=== PATIENT | female | born 1945 | race Caucasian/White ===

== ENCOUNTER → 2016-07-21 | Outpatient (CLI) | payer MEDICARE ==
--- NOTE | 2016-07-24 08:09 | MM ---
Reason for exam: screening (asymptomatic). Baseline mammogram. History: Patient is postmenopausal and is nulliparous. Family history of breast cancer in sister at age 49. Core biopsy of the left breast, 2006. Physical Findings: Nurse Summary: 3cm, 2cm, 2cm nodule in th left breast at 1 o'clock, 2 o'clock, 3 o'clock and 9 o'clock (nurse kp). MG 3D Diag Mammo W/Cad ALVERTO Bilateral CC and MLO view(s) were taken. ML view(s) were taken of the left breast. There are scattered fibroglandular densities. Finding: There is a high, spiculated 1.8 mm architectural distortion in the 10 o'clock position of the left breast. There is a 2.0 equal, ill defined architectural in the 1 o'clock position of the right breast. New finding. These results were verbally communicated with the patient and result sheet given to the patient on 07/21/16. ASSESSMENT: Incomplete: need additional imaging evaluation, BI-RAD 0 RECOMMENDATION: Ultrasound of both breasts.
--- NOTE | 2016-07-24 08:13 | USB ---
Reason for exam: additional evaluation requested from abnormal screening. History: Patient is postmenopausal and is nulliparous. Family history of breast cancer in sister at age 49. Core biopsy of the left breast, 2006. US Breast Limited BILAT Right breast ultrasound demonstrates no cystic or solid lesion seen. Left breast ultrasound includes all four quadrants, the retroareolar region and axilla. Finding demonstrate a 2.6 x 2.6cm oval, hypoechoic, vascular lesion at 2 o'clock palpable and a 1.5 x 1.4 x 1.0cm irregular, spiculated, solid, hypoechoic lesion at 10 o'clock palpable. These results were verbally communicated with the patient and result sheet given to the patient on 07/21/16. ASSESSMENT: Highly suggestive of malignancy, BI-RAD 5 RECOMMENDATION: Ultrasound core biopsy of the left breast. (2 sites, palpable and lymph node per Dr. Denny) Called Dr. Correa with mammographic findings and has scheduled an appointment for the patient for 08/17/16 at 9:[address] Denny. Biopsy scheduled for 07/31/16 at 8:00. PRELIMINARY REPORT CALLED AND FAXED TO DR. DENNY ON 07/24/16 AT 300/TP. Follow-up diagnostic mammogram of the right breast in 6 months.
== END ==
LOC: RADMAMWWP 13:23
PROVIDERS: ATTEND Internal Medicine
DX: N63 Unspecified lump in breast (principal); R92.8 Other abnormal and inconclusive findings on diagnostic imaging of breast
CPT/HCPCS: 76642; G0204; G0279

== ENCOUNTER → 2016-07-25 | Day surgery (SDC) | payer MEDICARE ==
[~2016-07-25] MED LIST: ALPRAZolam 0.25 MG TAB ONE; BACITRACIN OINT 1 EACH PACKET TOPICAL ONE; LIDOCAINE 1% INJ 10MG/ML (20 ML MDV) ONE; LIDOCAINE 1%-EPI 1:100,000 20 ML VIAL ONE; SODIUM BICARB 4% 5 ML VIAL (0.48 MEQ/ML) ONE
--- NOTE | 2016-07-25 11:41 | USB ---
EXAMINATION TYPE: US biopsy breast VAD LT, US biopsy breast add'l VAD LT Postprocedure digital left breast mammogram DATE OF EXAM: 07/25/2016 10:37 AM CLINICAL HISTORY: 70-year-old female R92.8 Abnormal mammogram. TECHNIQUE: Ultrasound guided core biopsy of the left breast, 2 sites. COMPARISON: Mammogram and ultrasound 07/21/2016 FINDINGS: The procedure of ultrasound guided core biopsy was explained to the patient. Benefits, alternatives, and risks were discussed. An informed consent was then obtained. The patient was placed in supine positioning for imaging and for the procedure. The overlying skin was prepped and draped in usual sterile fashion. SITE 1, SUSPICIOUS LEFT AXILLARY LYMPH NODE: Lidocaine buffered with bicarbonate was used as anesthetic into the skin followed by lidocaine and epinephrine into the subcutaneous tissues and into the abnormally enlarged left axillary lymph node. And subcutaneous tissue up to area of concern in the breast. Under ultrasound guidance, a 13-gauge vacuum-assisted mammotome Elite biopsy gun was used to obtain 4 core samples. Following this, a wing clip was left in lesion. SITE 2, 10:00 SUSPICIOUS LEFT BREAST MASS: Lidocaine buffered with bicarbonate was used as anesthetic into the skin and subcutaneous tissue up to area of concern in the left breast. Under ultrasound guidance, a 13-gauge vacuum- assisted mammotome Elite biopsy gun device was used to obtain 5 core samples. Following this, a coil clip was left in lesion. The patient tolerated the procedure well without any immediate complication. The patient was kept in the radiology department for short stay after the procedure and then discharged home in stable condition. Post procedure mammogram shows clips in appropriate position. IMPRESSION: Successful, uncomplicated ultrasound guided core biopsy of 2 sites in the left breast; full pathology results to follow: 1. Site 1, suspicious left axillary lymph node. 2. Site 2, suspicious 10:00 left breast mass. Pathology Results: Malignant A. BREAST, LEFT, TWO O'CLOCK, BIOPSY: DUCTAL CARCINOMA AND LYMPHOID TISSUE SUGGESTIVE OF LYMPH NODE WITH METASTATIC CARCINOMA. B. BREAST, LEFT, TEN O'CLOCK, BIOPSY: INVASIVE DUCTAL CARCINOMA. Recommendation Surgical consult of the left breast. LACHO
== END ==
LOC: RADUSWWP 07:34
PROVIDERS: ATTEND Surgery
DX: C50.912 Malignant neoplasm of unspecified site of left female breast (principal); R92.8 Other abnormal and inconclusive findings on diagnostic imaging of breast
CPT/HCPCS: 88305; 19083; 19084; G0206; A4648; J2001

== ENCOUNTER → 2016-08-09 | Outpatient (CLI) | payer MEDICARE ==
[2016-08-09 11:22] LABS: Blood Urea Nitrogen 11 mg/dL (7-17); Non-African American GFR(MDRD) >60 (>60 ml/min/1.73 sqM)
--- NOTE | 2016-08-09 14:07 | CT ---
EXAMINATION TYPE: CT ChestAbdPelvis w con DATE OF EXAM: 08/09/2016 1:05 PM INDICATION: Recent diagnosis of Breast CA COMPARISON: NONE CT DLP: 998.1 mGycm CONTRAST: Performed with Oral Contrast and with IV Contrast, patient injected with 100 mL of Omnipaque 300. TECHNIQUE: Axial images at 5 mm thick sections. Reconstructed images in the coronal plane. Delayed images through the kidneys. FINDINGS: CT CHEST: There is a 0.4 cm hypodensity within the posterior inferior right lobe thyroid within the field-of-vi ew. There is a markedly enlarged lymph node or 2 adjacent lymph nodes within the left axillary region. Th is area measures 3.4 x 5.1 cm. No enlarged mediastinal or hilar adenopathy is evident. The ascending aorta diameter at the level of the main pulmonary artery is 3.0 cm. The main pulmonary artery diameter at the bifurcation is 2.5 cm. Coronary artery calcification is present. CT ABDOMEN: Liver: Normal Spleen: Normal Pancreas: Normal Adrenal glands: The adrenal glands are normal. Gallbladder: Gallstones are present. Kidneys: No masses are evident. No hydronephrosis is present. No cysts are present. Delayed images were obtained through the kidneys, which remain unremarkable. Aorta: Vascular calcification is within the aorta. Inferior vena cava: Normal. CT PELVIS: Loops of bowel within the abdomen and pelvis are normal. There are loops of bowel which are incom pletely distended or lack oral contrast limiting their evaluation. Appendix: Normal as visualized. Urinary bladder: Normal. Genitourinary structures: Uterus and adnexal regions appear normal. Multiple phleboliths are within t he pelvis. Osseous structures: Lytic lesion versus hemangiomas within the right L1 vertebral body. IMPRESSIONS: 1. Markedly enlarged left axillary lymph node. This is a small density which could be a calcification or a biopsy clip. 2. Hemangioma versus lytic lesion within the L1 vertebral body. Nuclear medicine bone scan is incompl ete at this time.
--- NOTE | 2016-08-09 16:13 | NM ---
EXAMINATION TYPE: NM bone scan whole body DATE OF EXAM: 08/09/2016 3:44 PM COMPARISON: CT scan 08/09/2016 HISTORY: Breast cancer Delayed whole-body scanning was performed following the injection of . mCi Tc 99m MDP. Images acquir ed 3.5 hours post injection. FINDINGS: abnormal uptake involving the right shoulder, left knee and left foot likely post arthritic. Nonspecific uptake involving the right femoral neck. There is abnormal uptake to a mild degree throughout the mid, lower thoracic and throughout the lumba r spine appears to be degenerative. More intense area of abnormal uptake involving L5-S1 on the right also appears be related to large spur. There is mild intensity uptake involving L1 finding within the lumbar spine. Sclerotic lesion involvi ng the right iliac bone demonstrates no significant uptake by bone scan felt benign. IMPRESSION: 1. Abnormal uptake throughout the vertebral column appears to be degenerative. 2. Abnormality L1 and CT scan demonstrates mild to moderate uptake most likely related to hemangioma. 3. Abnormal uptake involving the shoulders, knees and feet most typical of arthritic change. 4. Pinpoint area of uptake on the oblique view of the chest within the right lateral third or fourth rib demonstrates no CT abnormality. However, this should be monitored closely as well as correlated c linically. There is no evidence to suggest previous fracture in this region.
== END | disposition home or self-care (01) ==
LOC: RADNMMAIN 10:40
PROVIDERS: ATTEND Internal Medicine Hematology & Oncology
DX: C50.812 Malignant neoplasm of overlapping sites of left female breast (principal); R59.0 Localized enlarged lymph nodes
CPT/HCPCS: 82565; 84520; 71260; 74177; 36415; 78306; A9503; Q9967

== ENCOUNTER 2016-08-17 11:35 | Day surgery (SDC) | payer MEDICARE ==
[2016-08-17 11:55] VITALS: RESP 16; TEMP 98.7
[2016-08-17] MEDS ORDERED: LIDOCAINE 1% 20 ML VIAL (10MG/ML) FOR IV START INTRADERMA ONE (12:05)
[2016-08-17] MEDS ORDERED: LACTATED RINGERS 1,000 ML IV ONE (12:05)
[2016-08-17] MEDS ORDERED: ONDANSETRON 4 MG/2 ML VIAL IVP ONE (12:10)
[2016-08-17] MEDS ORDERED: DEXAMETHASONE SOD PHOSPHATE 4 MG/ML 1 ML VIAL IV ONE (12:10)
--- NOTE | 2016-08-17 13:20 | P.HPADDEND ---
H&P Addendum H&P Addendum Date: 08/17/16 The patient and I spoke by phone yesterday afternoon. Her HER-2/roman receptor did come back positive on fish. She saw oncology yesterday afternoon and a change in plan was made to proceed with neoadjuvant therapy. For that reason her mastectomy was canceled and instead a Port-A-Cath will be placed today. The risks of bleeding, infection, pneumothorax, DVT, catheter malfunction were discussed. She understands and wishes to proceed.
[2016-08-17] MEDS ORDERED: fentaNYL (PF) 50 MCG/ML 2 ML AMP ONE (13:21)
[2016-08-17] MEDS ORDERED: SODIUM CHLORIDE 0.9% 50 ML with ceFAZolin 2,000 MG IV ONE ×2 (13:21)
[2016-08-17] MEDS ORDERED: LIDOCAINE 1% INJ 10MG/ML (20 ML MDV) ONE (13:21)
[2016-08-17] MEDS ORDERED: MIDAZOLAM 2 MG/2 ML VIAL ONE (13:21)
[2016-08-17] MEDS ORDERED: PROPOFOL 10 MG/ML 20 ML VIAL IV ONE (13:21)
[2016-08-17] MEDS ORDERED: ePHEDrine 50 MG/ML 1 ML AMP ONE (13:21)
[2016-08-17] MEDS ORDERED: LIDOCAINE 1% INJ 10MG/ML (20 ML MDV) SQ ONE ×2 (13:48)
[2016-08-17] MEDS ORDERED: HEPARIN SODIUM,PORCINE 100 UNIT/ML 5 ML VIAL IV ONE (13:49)
--- NOTE | 2016-08-17 14:22 | FL ---
EXAMINATION TYPE: FL guided central line placemt HISTORY: Fluoroscopy time Impression: 1. Fluoroscopy support provided to the referring physician of 6 seconds.
[2016-08-17] MEDS ORDERED: NALOXONE 0.4 MG/ML 1 ML VIAL IV PRN (14:45)
--- NOTE | 2016-08-17 14:47 | P.PCN ---
Date of Procedure: 08/17/16 Procedure(s) Performed: PREOPERATIVE DIAGNOSIS: Breast cancer POSTOPERATIVE DIAGNOSIS: Same PROCEDURE: Port-A-Cath placement SURGEON: Kash EBL: Minimal ANESTHESIA: Sedation COMPLICATIONS: None OPERATIVE PROCEDURE: Patient was brought and placed on the operative table in the supine position. The patient was sedated per anesthesia that time. The chest and neck were prepped and draped in usual sterile fashion. The ultrasound probe was used to identify the location of the right internal jugular vein. The skin was localized with lidocaine. The Seldinger needle was advanced into the IJ under ultrasound guidance. The wire was advanced through the needle under fluoroscopic guidance into the superior vena cava. A port pocket was created in the right infraclavicular location. The catheter was tunneled from the wire entrance site to the port pocket. The port was then connected to the catheter. The dilator introducer was threaded over the guidewire. The guidewire and dilator were then removed. The catheter was advanced through the introducer and introducer was then removed. The tip was seen to be in the right atrial junction. Port was flushed with both saline and a Hep-Lock solution. There was good flow both in and out of the port. The port was sutured in underlying tissues using 3-0 silk sutures. The subcutaneous tissues were reapproximated using 3-0 Vicryl sutures and the skin at both locations using 4-0 Monocryl sutures. Steri-Strips and sterile dressings then applied. DISPOSITION: Stable to recovery room
--- NOTE | 2016-08-17 14:55 | XR ---
EXAMINATION TYPE: XR chest 1V portable DATE OF EXAM: 08/17/2016 2:45 PM COMPARISON: NONE HISTORY: Port-A-Cath placement TECHNIQUE: Single frontal view of the chest is obtained. FINDINGS: There is no focal air space opacity, pleural effusion, or pneumothorax seen. The cardiac silhouette size is within normal limits. The osseous structures are intact. Port-A-Cath seen with t he tip overlying the SVC. No sizable pneumothorax. Curvature of the spine and degenerative changes no naeem. IMPRESSION: No acute process.
[2016-08-17 15:43] VITALS: BP 109/47; PULSE 92
== END 2016-08-17 15:40 | disposition home or self-care (01) ==
LOC: OR 11:35
PROVIDERS: ATTEND Surgery
DX: C50.919 Malignant neoplasm of unspecified site of unspecified female breast (principal); Z17.0 Estrogen receptor positive status [ER+]; I10 Essential (primary) hypertension; Z79.899 Other long term (current) drug therapy
CPT/HCPCS: 71010; 77001; 36571; C1788; J2250; J1642; J1100; J2405; J2001; J3010; J0690; J2704

== ENCOUNTER → 2016-08-23 | Outpatient (CLI) | payer MEDICARE ==
--- NOTE | 2016-08-23 11:54 | ECHOF ---
Referral Reason:C50.812 breast ca Z01.818 pre chemo MEASUREMENTS -------- HEIGHT: 165.1 cm WEIGHT: 72.6 kg BP: 141/65 RVIDd: 2.9 cm (< 3.3) IVSd: 1.0 cm (0.6 - 1.1) LVIDd: 4.0 cm (3.9 - 5.3) LVPWd: 1.1 cm (0.6 - 1.1) IVSs: 1.4 cm LVIDs: 2.8 cm LVPWs: 1.5 cm LA Diam: 3.2 cm (2.7 - 3.8) LAESV Index (A-L): 21.31 ml/m Ao Diam: 3.4 cm (2.0 - 3.7) AV Cusp: 1.9 cm (1.5 - 2.6) MV EXCURSION: 15.488 mm (> 18.000) MV EF SLOPE: 64 mm/s (70 - 150) EPSS: 0.4 cm MV E Ed: 0.64 m/s MV DecT: 266 ms MV A Ed: 0.75 m/s MV E/A Ratio: 0.86 FINDINGS -------- Sinus rhythm. This was a technically adequate study. The left ventricular size is normal. Left ventricular wall thickness is normal. Overall left ventricular systolic function is low-normal with, an EF between 50 - 55 %. The right ventricle is normal in size. Normal LA size by volume 22+/-6 ml/m2. The right atrium is normal in size. There is mild aortic valve sclerosis. The mitral valve leaflets are mildly thickened. Mild mitral annular calcification present. There is trace mitral regurgitation. The tricuspid valve appears structurally normal. The pulmonic valve is normal. The aortic root size is normal. The pericardium is normal. CONCLUSIONS -------- 1. Sinus rhythm. 2. Mild mitral annular calcification present. 3. There is trace mitral regurgitation. 4. The tricuspid valve appears structurally normal. 5. The pulmonic valve is normal. 6. The aortic root size is normal. 7. The pericardium is normal. 8. This was a technically adequate study. 9. The left ventricular size is normal. 10. Left ventricular wall thickness is normal. 11. The right ventricle is normal in size. 12. Normal LA size by volume 22+/-6 ml/m2. 13. The right atrium is normal in size. 14. There is mild aortic valve sclerosis. 15. The mitral valve leaflets are mildly thickened. HELIUM ARC WELDER: Usha Hinojosa RDCS
== END | disposition home or self-care (01) ==
LOC: RADECHMAIN 10:24
PROVIDERS: ATTEND Internal Medicine Hematology & Oncology
DX: Z01.818 Encounter for other preprocedural examination (principal); I34.0 Nonrheumatic mitral (valve) insufficiency; I35.8 Other nonrheumatic aortic valve disorders; C50.812 Malignant neoplasm of overlapping sites of left female breast
CPT/HCPCS: 93306

== ENCOUNTER → 2016-11-29 | Outpatient (CLI) | payer MEDICARE ==
--- NOTE | 2016-11-30 10:26 | ECHOF ---
Referral Reason:N MEASUREMENTS -------- HEIGHT: 165.1 cm WEIGHT: 72.1 kg BP: 144/65 RVIDd: 1.8 cm (< 3.3) IVSd: 1.1 cm (0.6 - 1.1) LVIDd: 4.5 cm (3.9 - 5.3) LVPWd: 1.2 cm (0.6 - 1.1) IVSs: 1.4 cm LVIDs: 3.5 cm LVPWs: 1.4 cm LAESV Index (A-L): 35.72 ml/m Ao Diam: 3.1 cm (2.0 - 3.7) AV Cusp: 1.7 cm (1.5 - 2.6) LA Diam: 4.1 cm (2.7 - 3.8) MV EXCURSION: 23.102 mm (> 18.000) MV EF SLOPE: 153 mm/s (70 - 150) EPSS: 0.8 cm MV E Ed: 0.87 m/s MV DecT: 287 ms MV A Ed: 0.54 m/s MV E/A Ratio: 1.61 RAP: 5.00 mmHg RVSP: 15.03 mmHg FINDINGS -------- Sinus rhythm. This was a technically adequate study. There is borderline concentric left ventricular hypertrophy. Overall left ventricular systolic function is mildly impaired with, an EF between 45 - 50 %. The right ventricle is normal in size and function. LA is moderately dilated 34-39 ml/m2 The right atrium is normal in size. Aortic valve is trileaflet and is mildly thickened. There is no evidence of aortic regurgitation. There is no evidence of aortic stenosis. The mitral valve leaflets are mildly thickened. Mild mitral annular calcification present. There is trace to mild mitral regurgitation. Trace tricuspid regurgitation present. There is no evidence of pulmonary hypertension. The right ventricular systolic pressure, as measured by Doppler, is 15.03mmHg. The pulmonic valve was not well visualized. The aortic root size is normal. Normal inferior vena cava with normal inspiratory collapse consistent with estimated right atrial pressure of 5 mmHg. The pericardium is normal. There is no pericardial effusion. CONCLUSIONS -------- 1. Sinus rhythm. 2. Trace tricuspid regurgitation present. 3. There is no evidence of pulmonary hypertension. 4. The right ventricular systolic pressure, as measured by Doppler, is 15.03mmHg. 5. The pulmonic valve was not well visualized. 6. The aortic root size is normal. 7. There is no pericardial effusion. 8. This was a technically adequate study. 9. There is borderline concentric left ventricular hypertrophy. 10. Overall left ventricular systolic function is mildly impaired with, an EF between 45 - 50 %. 11. LA is moderately dilated 34-39 ml/m2 12. Aortic valve is trileaflet and is mildly thickened. 13. The mitral valve leaflets are mildly thickened. 14. Mild mitral annular calcification present. 15. There is trace to mild mitral regurgitation. SALES REPRESENTATIVE GIRLS' APPAREL: Henry Josue RDCS
== END | disposition home or self-care (01) ==
LOC: RADECHMAIN 13:44
PROVIDERS: ATTEND Internal Medicine Hematology & Oncology
DX: Z01.810 Encounter for preprocedural cardiovascular examination (principal); I08.0 Rheumatic disorders of both mitral and aortic valves; C50.812 Malignant neoplasm of overlapping sites of left female breast
CPT/HCPCS: 93306

== ENCOUNTER → 2016-12-05 | Outpatient (CLI) | payer MEDICARE ==
--- NOTE | 2016-12-05 15:18 | NM ---
EXAMINATION TYPE: NM rest muga chemo DATE OF EXAM: 12/05/2016 COMPARISON: NONE HISTORY: Breast cancer, C50.812 Following intravenous administration of 3ml PYP 24.7 mCi Tc 99m Sodium Pertechnetate. FINDINGS: There is good myocardial wall thickening. Ejection fraction 58% IMPRESSION: Normal right and left ventricular chamber sizes. Normal right and left ventricular segmental wall mot ion.
== END | disposition home or self-care (01) ==
LOC: RADNMMAIN 12:26
PROVIDERS: ATTEND Internal Medicine Hematology & Oncology
DX: C50.919 Malignant neoplasm of unspecified site of unspecified female breast (principal)
CPT/HCPCS: 78472; A9560

== ENCOUNTER 2016-12-22 07:11 | Inpatient (IN) | payer MEDICARE ==
[2016-12-20 14:41] VITALS: BMI 26.6
[~2016-12-22 07:11] MED LIST changes: -ALPRAZolam 0.25 MG TAB ONE; -BACITRACIN OINT 1 EACH PACKET TOPICAL ONE; +DEXAMETHASONE SOD PHOSPHATE 10 MG/ML 1 ML VIAL IV ONE; +HEPARIN SODIUM,PORCINE 5,000 UNIT/ML 1 ML VIAL SQ ONE; +HYDROmorphone 1 MG/ML 1 ML SYRINGE IVP PRN; +LACTATED RINGERS 1,000 ML IV SCH; -LIDOCAINE 1% INJ 10MG/ML (20 ML MDV) ONE; -LIDOCAINE 1%-EPI 1:100,000 20 ML VIAL ONE; +MIDAZOLAM 2 MG/2 ML VIAL IV PRN; +ONDANSETRON 4 MG/2 ML VIAL IVP ONE; +Pre Op ABX Message 1 EACH MISC MISCELLANE ONE; -SODIUM BICARB 4% 5 ML VIAL (0.48 MEQ/ML) ONE
[2016-12-22] MEDS ORDERED: LIDOCAINE 1% 20 ML VIAL (10MG/ML) FOR IV START INTRADERMA ONE (11:02)
[2016-12-22] MEDS ORDERED: PROPOFOL 10 MG/ML 20 ML VIAL IV ONE (11:38)
[2016-12-22] MEDS ORDERED: HYDROmorphone (PF) 1 MG/ML ONE (11:38)
[2016-12-22] MEDS ORDERED: MIDAZOLAM 2 MG/2 ML VIAL ONE (11:38)
[2016-12-22] MEDS ORDERED: fentaNYL (PF) 50 MCG/ML 2 ML AMP ONE (11:38)
[2016-12-22] MEDS ORDERED: ceFAZolin 1,000 MG VIAL ONE (11:38)
[2016-12-22] MEDS ORDERED: SUCCINYLCHOLINE CHLORIDE 100 MG/5 ML SYR IV ONE (11:38)
[2016-12-22] MEDS ORDERED: SODIUM CHLORIDE 0.9% 50 ML with ceFAZolin 2,000 MG IV ONE ×2 (12:02)
[2016-12-22] MEDS ORDERED: LACTATED RINGERS 1,000 ML IV ONE (12:33)
[2016-12-22] MEDS ORDERED: HYDROcodone/APAP 5-325MG 1 EACH TAB PO PRN (15:11)
[2016-12-22] MEDS ORDERED: ONDANSETRON 4 MG/2 ML VIAL IVP PRN (15:11)
[2016-12-22] MEDS ORDERED: NALOXONE 0.4 MG/ML 1 ML VIAL IV PRN ×2 (15:11→15:37)
--- NOTE | 2016-12-22 15:33 | P.OP ---
Date of Procedure: 12/22/16 Preoperative Diagnosis: Postoperative Diagnosis: Procedure(s) Performed: PREOPERATIVE DIAGNOSIS: Left breast cancer POSTOPERATIVE DIAGNOSIS: Same PROCEDURE: Left breast modified radical mastectomy with right breast simple mastectomy SURGEON: Kash EBL: Minimal ANESTHESIA: General COMPLICATIONS: None OPERATIVE PROCEDURE: Patient was placed on the operating room table in the supine position. The chest wall was prepped and draped in usual sterile fashion. Using the skin marker the proposed incision sites were drawn out on the chest wall. The right side was first addressed. The superior incision was first created. The incision was elliptical in nature encompassing the nipple areolar complex. Flaps were raised superiorly until the chest wall was reached. Inferior flaps were then raised. The breast was removed from the chest wall using electrocautery. Multiple vessels were divided using either electrocautery, Harmonic scalpel, or the clip fur trimming machine operator. The area was irrigated. No bleeding was seen. A drain was placed beneath the flaps of the mastectomy incision. The subcutaneous tissues were then closed using 3-0 Vicryl sutures and the skin was closed using a running 4-0 Monocryl stitch. The left side was then addressed. An identical incision was created. Again dissection took place down to the chest wall after flaps are raised superiorly medially and inferiorly. The breast was removed from the chest wall using electrocautery. The axilla was then addressed. A formal axillary node dissection took place. The palpable nodes were once again identified. The long thoracic and thoracodorsal nerve courses were identified and preserved. Small vessels were either clipped or divided using the Harmonic scalpel. The breast was then fully removed using electrocautery after the axillary contents were swept inferiorly. The operative site was irrigated with saline and no bleeding was seen. 2 drains were placed beneath the flaps of the mastectomy incision. The subcutaneous tissues were then closed using 3-0 Vicryl sutures and the skin was closed using a running 4-0 Monocryl stitch. Prineo dressing was used along the entire length of both incisions. The drains were sutured in place using a 3-0 silk stitch. DISPOSITION: Stable to recovery room Implants: Indications for Procedure: Operative Findings: Description of Procedure:
[2016-12-22] MEDS ORDERED: HYDROmorphone PCA 5 MG/25 ML SYRINGE IV PRN (15:40)
[2016-12-22] MEDS: HEPARIN SODIUM,PORCINE 5,000 UNIT/ML 1 ML VIAL SQ SCH (16:03)
[2016-12-22] MEDS: DOCUSATE 100 MG CAP PO SCH (20:45)
[2016-12-22] MEDS: FAMOTIDINE 20 MG TAB PO SCH (20:45)
[2016-12-22] MEDS: ALPRAZolam 0.25 MG TAB PO PRN (21:02)
[2016-12-23] MEDS: HEPARIN SODIUM,PORCINE 5,000 UNIT/ML 1 ML VIAL SQ SCH ×4 (00:45→23:09)
[2016-12-23] MEDS: D5-0.45% NACL WITH KCL 20MEQ/L 1,000 ML IV SCH ×2 (01:16→11:44)
[2016-12-23 06:56] LABS: Basophils % (A) 0 %; CH 32.5; CHCM 33.9; Eosinophils % (A) 0 %; HCT 25.9 % (34.0-46.0); HDW 3.09; HGB 8.5 gm/dL (11.4-16.0); Luc # (Auto) 0.16; Luc % (Auto) 1; Lymphocytes # (A) 1.1 k/uL (1.0-4.8); Lymphocytes % (A) 8 %; MCH 31.2 pg (25.0-35.0); MCHC 32.6 g/dL (31.0-37.0); MCV 95.8 fL (80.0-100.0); Monocytes # (A) 0.5 k/uL (0-1.0); Monocytes % (A) 4 %; Neutrophils % (A) 86 %; RBC 2.71 m/uL (3.80-5.40); RDW 15.6 % (11.5-15.5); WBC 12.8 k/uL (3.8-10.6); WBC (Perox) 13.33
[2016-12-23 07:16] LABS: Calcium 8.6 mg/dL (8.4-10.2); Potassium 3.6 mmol/L (3.5-5.1)
[2016-12-23] MEDS: DOCUSATE 100 MG CAP PO SCH ×2 (08:04→20:27)
[2016-12-23] MEDS: FAMOTIDINE 20 MG TAB PO SCH ×2 (08:05→20:27)
--- NOTE | 2016-12-23 10:16 | P.PN ---
Progress Note - Text The patient is being seen for Dr. Hewitt. She had a left modified radical mastectomy and a right simple mastectomy yesterday for malignancy. She is coming along fairly well. She is awake alert. Vitals are stable. Output from the HARINDER drains are not excessive. On she is afebrile. Both surgical incisions looked great with no evidence of any infection hematoma seroma. Hemoglobin is 8.5. Impression stable postop per. Satisfactory pain control. Minimal discomfort. Anemia of chronic illness. Recommendation. We will try her on by mouth meds for pain. Otherwise continued observation. Encouraged to ambulate.
--- NOTE | 2016-12-23 11:07 | P.CONS ---
History of Present Illness - Reason for Consult Consult date: 12/23/16 Medical management estimated by Dr. goss - History of Present Illness This is a 71-year-old female with breast cancer HER-2 positive underwent chemotherapy and thereafter neoadjuvant therapy with trazatumab comes in to the hospital for elective bilateral mastectomy and a left-sided radical mastectomy. Patient was apparently noted to have a suspicious spot on her recent mammogram on the right breast hence underwent bilateral mastectomy Patient today states her her pain is well-controlled is currently on the Dilaudid DIVERSIONAL THERAPIST'S ASSISTANT Denies having any headaches blurry vision chest pain difficulty breathing nausea vomiting. Patient has not had a bowel movement yet No other complaints reported patient does get tearful intermittently however is in good spirits after the surgery. Review of Systems All systems: negative (Noted in HPI) Past Medical History Past Medical History: Cancer, GERD/Reflux, Hypertension Additional Past Medical History / Comment(s): LEFT BREAST CA, HAD 12 WEEKS OF CHEMO, LAST ONE 11/20/16, STATES HAS SOME SKIN REDDNESS R/T CHEMO TX ON MULT AREAS History of Any Multi-Drug Resistant Organisms: None Reported Past Surgical History: Breast Surgery Additional Past Surgical History / Comment(s): LEFT BREAST BX, PORT A CATH, ALVERTO CATARACT Past Anesthesia/Blood Transfusion Reactions: Motion Sickness Past Psychological History: No Psychological Hx Reported Smoking Status: Never smoker Past Alcohol Use History: None Reported Past Drug Use History: None Reported - Past Family History Father History Unknown: Yes Medications and Allergies Home Medications Medication Instructions Recorded Confirmed Type ALPRAZolam [Xanax] 0.25 mg PO Q6HR PRN 08/10/16 12/22/16 History Valsartan/Hydrochlorothiazide 1 tab PO QAM 08/10/16 12/22/16 History [Valsartan-Hctz 160-25 mg Tab] amLODIPine [Norvasc] 5 mg PO DAILY 08/10/16 12/22/16 History Eszopiclone [Lunesta] 2 mg PO HS 12/20/16 12/22/16 History Omeprazole Magnesium [Prilosec OTC] 20 mg PO DAILY 12/20/16 12/22/16 History Allergies Allergy/AdvReac Type Severity Reaction Status Date / Time adhesive tape Allergy REDDNESS Verified 12/22/16 16:51 Physical Exam Vitals: Vital Signs Temp Pulse Pulse Pulse Resp BP BP 12/23/16 07:00 97.0 F L 66 18 12/23/16 04:15 97.9 F 80 16 12/23/16 00:45 97.5 F L 84 18 12/22/16 20:45 12/22/16 20:18 97.6 F 88 16 12/22/16 19:18 85 16 12/22/16 18:18 87 16 12/22/16 17:48 86 16 12/22/16 17:18 89 16 12/22/16 17:03 88 16 12/22/16 16:48 88 16 12/22/16 16:23 97.8 F 95 16 12/22/16 15:37 89 16 120/58 12/22/16 15:22 96 16 119/58 12/22/16 15:06 85 16 111/71 12/22/16 14:50 97.4 F L 86 16 119/56 12/22/16 11:15 78 18 133/63 BP Pulse Ox 12/23/16 07:00 112/58 96 12/23/16 04:15 110/69 94 L 12/23/16 00:45 109/63 95 12/22/16 20:45 95 12/22/16 20:18 103/53 95 12/22/16 19:18 109/56 96 12/22/16 18:18 101/54 92 L 12/22/16 17:48 106/55 94 L 12/22/16 17:18 106/56 96 12/22/16 17:03 100/55 93 L 12/22/16 16:48 105/54 91 L 12/22/16 16:23 111/56 90 L 12/22/16 15:37 94 L 12/22/16 15:22 92 L 12/22/16 15:06 94 L 12/22/16 14:50 90 L 12/22/16 11:15 99 Intake and Output 12/22/16 12/23/16 12/23/16 22:59 06:59 14:59 Intake Total 200 1210 Output Total 730 660 Balance -530 550 Intake: IV 200 970 Lactated Ringers 1,000 ml 970 @ 20 mls/hr IV .Q24H [facility] Rx#:[id number] Oral 240 Output: Drainage 90 60 Left Lower Chest 20 10 Left Upper Chest 30 30 Right Chest 40 20 Urine 640 600 Other: # Voids 1 1 Physical exam Gen. appearance oriented 3 in no distress Neck is supple no JVD Lungs trace Crackles noted. A bandage over her bilateral breasts. Exam is deferred as the surgeon has already evaluated the incision. Heart S1-S2 heard regular rate and rhythm no murmurs appreciated Abdomen is soft nontender no organomegaly bowel sounds are intact Neurologically cranial nerves II-12 grossly intact no focal motor or sensory deficits noted Skin no abnormalities appreciated Results CBC & Chem 7: 12/23/16 06:25 12/23/16 06:25 Labs: Abnormal Lab Results - Last 24 Hours (Table) 12/23/16 12/23/16 Range/Units 06:25 06:25 WBC 12.8 H (3.8-10.6) k/uL RBC 2.71 L (3.80-5.40) m/uL Hgb 8.5 L (11.4-16.0) gm/dL Hct 25.9 L (34.0-46.0) % RDW 15.6 H (11.5-15.5) % Plt Count 488 H (150-450) k/uL Neutrophils # 11.0 H (1.3-7.7) k/uL Sodium 127 L (137-145) mmol/L Chloride 97 L (98-107) mmol/L Carbon Dioxide 18 L (22-30) mmol/L BUN 38 H (7-17) mg/dL Creatinine 3.65 H (0.52-1.04) mg/dL Glucose 205 H (74-99) mg/dL Assessment and Plan Plan: #1 left-sided breast cancer status post chemotherapy and surgical resection #2 acute anemia suspect underlying nutritional deficiency, however likely induced from recent chemotherapy #3 acute kidney injury this is likely prerenal with elevated BUN #4 hyponatremia this is likely prerenal again #5 non-anion gap metabolic acidosis is likely due to #3 #6 history of essential hypertension Plan DC D5 W we'll start the patient on normal saline at 100 mL per hour Urine analysis stat Repeat urine labs including sodium and osmolarity Repeat renal function in the a.m. Encourage ambulation encouraged use of I S. Hold off on blood pressure medications at this time.
[2016-12-23 11:36] LABS: Total Bilirubin 0.2 mg/dL (0.2-1.3); Total Protein 6.1 g/dL (6.3-8.2)
[2016-12-23] MEDS: SODIUM CHLORIDE 0.9% 1,000 ML IV SCH ×2 (11:48→23:13)
[2016-12-23 13:15] LABS: Appearance,Urine Cloudy (Clear); Bacteria,Urine Rare /hpf; Bilirubin,Urine Negative (Negative); Glucose,Urine (UA) Negative (Negative); Ketones,Urine Negative (Negative); Leukocyte Esterase,Urine Large (Negative); Nitrite,Urine Negative (Negative); Particle Count 1435; Protein,Urine Negative (Negative); RBC,Urine 5 /hpf (0-5); Specific Gravity,Urine 1.006 (1.001-1.035); UA Billing (MACRO vs. MICRO) MICRO; Urobilinogen,Urine <2.0 mg/dL (<2.0); WBC,Urine 63 /hpf (0-5)
[2016-12-23] MEDS: HYDROcodone/APAP 5-325MG 1 EACH TAB PO PRN ×2 (13:32→18:22)
[2016-12-23 13:56] LABS: % Iron Saturation 18.1 % (20-50)
[2016-12-23] MEDS: ALPRAZolam 0.25 MG TAB PO PRN ×2 (16:13→23:09)
[2016-12-24] MEDS: HYDROcodone/APAP 5-325MG 1 EACH TAB PO PRN ×2 (02:04→09:01)
[2016-12-24 07:09] LABS: Basophils % (A) 0 %; CH 32.2; CHCM 33.2; Eosinophils # (A) 0.3 k/uL (0-0.7); Eosinophils % (A) 2 %; HCT 27.4 % (34.0-46.0); HDW 3.08; HGB 8.8 gm/dL (11.4-16.0); Luc # (Auto) 0.19; Luc % (Auto) 2; Lymphocytes % (A) 17 %; MCH 31.3 pg (25.0-35.0); MCHC 32.2 g/dL (31.0-37.0); MCV 97.3 fL (80.0-100.0); Monocytes # (A) 0.6 k/uL (0-1.0); Monocytes % (A) 6 %; Neutrophils # (A) 8.2 k/uL (1.3-7.7); Neutrophils % (A) 73 %; RBC 2.82 m/uL (3.80-5.40); RDW 15.7 % (11.5-15.5); WBC 11.2 k/uL (3.8-10.6); WBC (Perox) 11.56
[2016-12-24 07:29] LABS: Calcium 8.2 mg/dL (8.4-10.2); Potassium 3.7 mmol/L (3.5-5.1); Total Bilirubin 0.2 mg/dL (0.2-1.3); Total Protein 6.3 g/dL (6.3-8.2)
[2016-12-24] MEDS: DOCUSATE 100 MG CAP PO SCH (09:01)
[2016-12-24] MEDS: HEPARIN SODIUM,PORCINE 5,000 UNIT/ML 1 ML VIAL SQ SCH (09:01)
[2016-12-24] MEDS: FAMOTIDINE 20 MG TAB PO SCH (09:01)
[2016-12-24 09:22] VITALS: BP 119/65; PULSE 81; RESP 19; TEMP 98.4
[2016-12-24] MEDS: SODIUM CHLORIDE 0.9% 1,000 ML IV SCH (10:01)
--- NOTE | 2016-12-24 11:30 | P.DS ---
Providers Date of admission: 12/22/16 09:11 Attending physician: Ben Hewitt Consults: 12/22/16 15:11 Consult Physician Routine Consulting Provider: Jose Louis Consult Reason/Comments: Medical management Do you want consulting provider notified?: Yes Primary care physician: Byron Correa Plan - Discharge Summary New Discharge Prescriptions: New Hydrocodone/Acetaminophen [[place] 5-325] 1 - 2 each PO Q4HR PRN #30 tab PRN Reason: pain No Action amLODIPine [Norvasc] 5 mg PO DAILY ALPRAZolam [Xanax] 0.25 mg PO Q6HR PRN PRN Reason: Anxiety Valsartan/Hydrochlorothiazide [Valsartan-Hctz 160-25 mg Tab] 1 tab PO QAM Eszopiclone [Lunesta] 2 mg PO HS Omeprazole Magnesium [Prilosec OTC] 20 mg PO DAILY Discharge Medication List ALPRAZolam [Xanax] 0.25 mg PO Q6HR PRN 08/10/16 [History] Valsartan/Hydrochlorothiazide [Valsartan-Hctz 160-25 mg Tab] 1 tab PO QAM [History] amLODIPine [Norvasc] 5 mg PO DAILY 08/10/16 [History] Eszopiclone [Lunesta] 2 mg PO HS 12/20/16 [History] Omeprazole Magnesium [Prilosec OTC] 20 mg PO DAILY 12/20/16 [History] Hydrocodone/Acetaminophen [[place] 5-325] 1 - 2 each PO Q4HR PRN #30 tab 12/22/16 [Rx] Follow up Appointment(s)/Referral(s): Ben Hewitt MD [Medical Doctor] - 1 Week Activity/Diet/Wound Care/Special Instructions: [phone] Discharge Disposition: HOME SELF-CARE
[2016-12-24] MEDS ORDERED: SODIUM BICARBONATE TAB 650 MG TAB PO SCH (12:15)
[2016-12-24] MEDS: ALPRAZolam 0.25 MG TAB PO PRN (13:01)
--- NOTE | 2016-12-24 19:40 | P.PN ---
Subjective This is a 71-year-old female with breast cancer HER-2 positive underwent chemotherapy and thereafter neoadjuvant therapy with trazatumab comes in to the hospital for elective bilateral mastectomy and a left-sided radical mastectomy. 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 Patient has not had a bowel movement yet No other complaints reported patient does get tearful intermittently however is in good spirits after the surgery. 11/23/16 improved tearful urine output reported Physical exam Gen. appearance oriented 3 in no distress Neck is supple no JVD Lungs trace Crackles noted. A bandage over her bilateral breasts. Exam is deferred as the surgeon has already evaluated the incision. Heart S1-S2 heard regular rate and rhythm no murmurs appreciated Abdomen is soft nontender no organomegaly bowel sounds are intact Neurologically cranial nerves II-12 grossly intact no focal motor or sensory deficits noted Skin no abnormalities appreciated Objective - Vital Signs Vital signs: Vital Signs Temp 98.4 F 12/24/16 09:21 Pulse 81 12/24/16 09:21 Resp 19 12/24/16 09:21 BP 119/65 12/24/16 09:21 Pulse Ox 96 12/24/16 09:21 Intake & Output 12/24/16 12/24/16 12/25/16 06:59 18:59 06:59 Intake Total 480 Output Total 125 Balance 355 Intake: Oral 480 Output: Drainage 125 Left Lower Chest 45 Left Upper Chest 50 Right Chest 30 Other: # Voids 1 - Labs CBC & Chem 7: 12/24/16 06:58 12/24/16 06:58 Labs: Abnormal Lab Results - Last 24 Hours (Table) 12/24/16 12/24/16 Range/Units 06:58 06:58 WBC 11.2 H (3.8-10.6) k/uL RBC 2.82 L (3.80-5.40) m/uL Hgb 8.8 L (11.4-16.0) gm/dL Hct 27.4 L (34.0-46.0) % RDW 15.7 H (11.5-15.5) % Plt Count 486 H (150-450) k/uL Neutrophils # 8.2 H (1.3-7.7) k/uL Sodium 132 L (137-145) mmol/L Carbon Dioxide 15 L (22-30) mmol/L BUN 32 H (7-17) mg/dL Creatinine 2.76 H (0.52-1.04) mg/dL Glucose 109 H (74-99) mg/dL Calcium 8.2 L (8.4-10.2) mg/dL Albumin 2.9 L (3.5-5.0) g/dL Assessment and Plan Plan: #1 left-sided breast cancer status post chemotherapy and surgical resection #2 acute anemia suspect underlying nutritional deficiency, however likely induced from recent chemotherapy #3 acute kidney injury this is likely prerenal with elevated BUN #4 hyponatremia this is likely prerenal again #5 non-anion gap metabolic acidosis is likely due to #3 #6 history of essential hypertension Plan serum NA is improved hold HTN meds recommend follow up with Dr Correa for CMP renal function peaked at 3.3, improved with ivf bp stable at dc encouraged oral intake likely etiology is loose stools causing dehydration and use of anti HTN meds
== END 2016-12-24 13:23 | disposition home or self-care (01) | DRG 580 ==
LOC: 2ORWHC 09:11 → 6PED 14:46
PROVIDERS: ADMIT Surgery; ATTEND Surgery
PROC: 0HTV0ZZ Resection of Bilateral Breast, Open Approach (ICD-10-PCS; principal; 2016-12-22 11:00)
PROC: 07B60ZZ Excision of Left Axillary Lymphatic, Open Approach (ICD-10-PCS; principal; 2016-12-22 11:00)
DX: C50.912 Malignant neoplasm of unspecified site of left female breast (principal); E87.1 Hypo-osmolality and hyponatremia; N17.9 Acute kidney failure, unspecified; D64.81 Anemia due to antineoplastic chemotherapy; D63.8 Anemia in other chronic diseases classified elsewhere; I10 Essential (primary) hypertension; K21.9 Gastro-esophageal reflux disease without esophagitis; Z17.0 Estrogen receptor positive status [ER+]; Z79.899 Other long term (current) drug therapy; T45.1X5A Adverse effect of antineoplastic and immunosuppressive drugs, initial encounter
CPT/HCPCS: 80053; 81001; 82728; 83540; 83550; 83935; 84300; 85025

== ENCOUNTER 2017-01-05 09:15 | Inpatient (IN) | payer MEDICARE ==
[2017-01-05] MEDS ORDERED: ONDANSETRON 4 MG/2 ML VIAL IVP STA (09:31)
[2017-01-05] MEDS ORDERED: SODIUM CHLORIDE 0.9% 1,000 ML IV STA ×2 (09:31)
--- NOTE | 2017-01-05 09:44 | ED ---
General Adult HPI - General Chief complaint: Nausea/Vomiting/Diarrhea Stated complaint: DIARRHEA, VOMTING Time Seen by Provider: 01/05/17 09:25 Source: patient, RN notes reviewed Mode of arrival: wheelchair Limitations: no limitations - History of Present Illness Initial comments: Patient 71-year-old female significant past medical history for bilateral mastectomy 2 weeks, who presents emergency room today with chief complaint of symptoms of nausea vomiting diarrhea over the last 2-3 days. Patient does admit that she saw her family doctor yesterday was given a shot of nausea medication here states still feeling nauseated having a few episodes of vomiting. States having some diarrhea off and on over the last 2-3 days. States she was advised by the family doctor come here to the emergency room for IV fluids and hydration. Patient denies any other complaints or associated symptoms. Patient denies any recent fever, chills, shortness of breath, chest pain, back pain, abdominal pain, numbness or tingling, dysuria or hematuria, constipation, headaches or visual changes, or any other complaints. - Related Data Home Medications Medication Instructions Recorded Confirmed Furosemide [Lasix] 20 mg PO DAILY 01/05/17 01/05/17 Ondansetron Odt [Zofran ODT] 4 - 8 mg PO TID PRN 01/05/17 01/05/17 Allergies Allergy/AdvReac Type Severity Reaction Status Date / Time adhesive tape Allergy PAPER TAPE Verified 01/05/17 10:34 causes rash & scabs Review of Systems ROS Statement: Those systems with pertinent positive or pertinent negative responses have been documented in the HPI. ROS Other: All systems not noted in ROS Statement are negative. Past Medical History Past Medical History: Cancer, GERD/Reflux, Hypertension Additional Past Medical History / Comment(s): LEFT BREAST CA, HAD 12 WEEKS OF CHEMO, LAST ONE 11/20/16, STATES HAS SOME SKIN REDDNESS R/T CHEMO TX ON MULT AREAS History of Any Multi-Drug Resistant Organisms: None Reported Past Surgical History: Breast Surgery Additional Past Surgical History / Comment(s): LEFT BREAST BX, PORT A CATH, ALVERTO CATARACT Past Anesthesia/Blood Transfusion Reactions: Motion Sickness Past Psychological History: No Psychological Hx Reported Smoking Status: Never smoker Past Alcohol Use History: None Reported Past Drug Use History: None Reported - Past Family History Father History Unknown: Yes General Exam - General Exam Comments Initial Comments: General: The patient is awake and alert, in no distress, and does not appear acutely ill. Eye: Pupils are equal, round and reactive to light, extra-ocular movements are intact. No nystagmus. There is normal conjunctiva bilaterally. No signs of icterus. Ears, nose, mouth and throat: There are moist mucous membranes and no oral lesions. Neck: The neck is supple, there is no tenderness or JVD. Cardiovascular: There is a regular rate and rhythm. No murmur, rub or gallop is appreciated. Respiratory: Lungs are clear to auscultation, respirations are non-labored, breath sounds are equal. No wheezes, stridor, rales, or rhonchi. Gastrointestinal: Soft, non-distended, non-tender abdomen without masses or organomegaly noted. There is no rebound or guarding present. No CVA tenderness. Bowel sounds are unremarkable. Musculoskeletal: Normal ROM, no tenderness. Strength 5/5. Sensation intact. Pulses equal bilaterally 2+. Neurological: A&O x 3. CN II-XII intact, There are no obvious motor or sensory deficits. Coordination appears grossly intact. Speech is normal. Skin: Skin is warm and dry and no rashes or lesions are noted. Psychiatric: Cooperative, appropriate mood & affect, normal judgment. Limitations: no limitations Course Vital Signs 01/05/17 09:16 Temperature 97.1 F L Pulse Rate 85 Respiratory 18 Rate Blood Pressure 134/74 O2 Sat by Pulse 99 Oximetry Medical Decision Making - Medical Decision Making Patient reexamined at this time shows no signs of distress. Resting comfortably in the stretcher. Patient's labs been reviewed does show hemoglobin 8.5. Does show potassium 2.8. Sodium 123. Patient. Creatinine mildly elevated from previous labs. Patient given potassium here in emergency room. Will also be given a liter bolus. Patient will be continued on saline at this time for acute renal failure. Patient will be admitted. - Lab Data Result diagrams: 01/05/17 10:03 01/05/17 10:03 Lab Results 01/05/17 01/05/17 01/05/17 Range/Units 10:03 10:03 10:03 WBC 11.8 H (3.8-10.6) k/uL RBC 2.73 L (3.80-5.40) m/uL Hgb 8.5 L (11.4-16.0) gm/dL Hct 24.4 L (34.0-46.0) % MCV 89.3 D (80.0-100.0) fL MCH 31.1 (25.0-35.0) pg MCHC 34.9 (31.0-37.0) g/dL RDW 15.9 H (11.5-15.5) % Plt Count 342 (150-450) k/uL Neutrophils % 87 % Lymphocytes % 8 % Monocytes % 4 % Eosinophils % 0 % Basophils % 0 % Neutrophils # 10.3 H (1.3-7.7) k/uL Lymphocytes # 0.9 L (1.0-4.8) k/uL Monocytes # 0.4 (0-1.0) k/uL Eosinophils # 0.0 (0-0.7) k/uL Basophils # 0.0 (0-0.2) k/uL Sodium 123 L (137-145) mmol/L Potassium 2.8 L* (3.5-5.1) mmol/L Chloride 94 L (98-107) mmol/L Carbon Dioxide 16 L (22-30) mmol/L Anion Gap 13 mmol/L BUN 34 H (7-17) mg/dL Creatinine 4.38 H (0.52-1.04) mg/dL Est GFR (MDRD) Af Amer 12 (>60 ml/min/1.73 sqM) Est GFR (MDRD) Non-Af 10 (>60 ml/min/1.73 sqM) Glucose 123 H (74-99) mg/dL Calcium 8.8 (8.4-10.2) mg/dL Total Bilirubin 0.7 (0.2-1.3) mg/dL AST 20 (14-36) U/L ALT 31 (9-52) U/L Alkaline Phosphatase 73 (38-126) U/L Total Protein 6.5 (6.3-8.2) g/dL Albumin 3.0 L (3.5-5.0) g/dL Lipase 151 (23-300) U/L Urine Color Light Yellow Urine Appearance Cloudy H (Clear) Urine pH 6.5 (5.0-8.0) Ur Specific Barnard 1.004 (1.001-1.035) Urine Protein Trace H (Negative) Urine Glucose (UA) Negative (Negative) Urine Ketones Negative (Negative) Urine Blood Trace H (Negative) Urine Nitrite Negative (Negative) Urine Bilirubin Negative (Negative) Urine Urobilinogen <2.0 (<2.0) mg/dL Ur Leukocyte Esterase Large H (Negative) Urine RBC 1 (0-5) /hpf Urine WBC 125 H (0-5) /hpf Urine WBC Clumps Few H (None) /hpf Urine Mucus Rare H (None) /hpf Disposition Clinical Impression: Acute renal failure, Hypokalemia, Anemia, Hyponatremia, UTI (urinary tract infection) Disposition: ADMITTED IP TO THIS HOSP Condition: Stable Referrals: Byron Correa MD [Primary Care Provider] - 1-2 days Time of Disposition: 11:19
[2017-01-05] MEDS ORDERED: ALPRAZolam 0.5 MG TAB PO STA (10:29)
[2017-01-05 10:40] LABS: Appearance,Urine Cloudy (Clear); Bilirubin,Urine Negative (Negative); Glucose,Urine (UA) Negative (Negative); Ketones,Urine Negative (Negative); Leukocyte Esterase,Urine Large (Negative); Mucus,Urine Rare /hpf; Nitrite,Urine Negative (Negative); PH, Urine 6.5 (5.0-8.0); Particle Count 4708; Protein,Urine Trace (Negative); RBC,Urine 1 /hpf (0-5); Specific Gravity,Urine 1.004 (1.001-1.035); UA Billing (MACRO vs. MICRO) MICRO; Urobilinogen,Urine <2.0 mg/dL (<2.0); WBC,Urine 125 /hpf (0-5)
[2017-01-05 10:44] LABS: Calcium 8.8 mg/dL (8.4-10.2); Total Bilirubin 0.7 mg/dL (0.2-1.3); Total Protein 6.5 g/dL (6.3-8.2)
[2017-01-05 10:45] LABS: Basophils % (A) 0 %; CH 32.8; CHCM 36.8; Eosinophils % (A) 0 %; HCT 24.4 % (34.0-46.0); HDW 2.87; HGB 8.5 gm/dL (11.4-16.0); Luc # (Auto) 0.14; Luc % (Auto) 1; Lymphocytes # (A) 0.9 k/uL (1.0-4.8); Lymphocytes % (A) 8 %; MCH 31.1 pg (25.0-35.0); MCHC 34.9 g/dL (31.0-37.0); Mean Platelet Volume 7.6; Monocytes # (A) 0.4 k/uL (0-1.0); Monocytes % (A) 4 %; Neutrophils # (A) 10.3 k/uL (1.3-7.7); Neutrophils % (A) 87 %; RBC 2.73 m/uL (3.80-5.40); RDW 15.9 % (11.5-15.5); WBC 11.8 k/uL (3.8-10.6); WBC (Perox) 12.24
[2017-01-05 10:46] LABS: MCV 89.3 fL (80.0-100.0)
[2017-01-05 10:48] LABS: Potassium 2.8 mmol/L (3.5-5.1)
[2017-01-05] MEDS ORDERED: POTASSIUM CHLORIDE ER 20 MEQ TAB.ER PO STA (10:49)
[2017-01-05] MEDS ORDERED: HYDROcodone/APAP 5-325MG 1 EACH TAB PO PRN (11:19)
[2017-01-05] MEDS ORDERED: NALOXONE 0.4 MG/ML 1 ML VIAL IV PRN (11:19)
[2017-01-05] MEDS ORDERED: ACETAMINOPHEN TAB 325 MG TAB PO PRN (11:19)
[2017-01-05 14:06] VITALS: BMI 26.9
[2017-01-05] MEDS: ONDANSETRON 4 MG/2 ML VIAL IVP PRN (17:43)
[2017-01-05] MEDS ORDERED: Potassium Replacement Protocol 1 EACH MISC MISCELLANE PRN (18:05)
[2017-01-05] MEDS: POTASSIUM CHLORIDE ER 20 MEQ TAB.ER PO SCH ×2 (19:39→19:58)
[2017-01-05] MEDS: ALPRAZolam 0.25 MG TAB PO PRN (19:58)
[2017-01-06] MEDS: POTASSIUM CHLORIDE ER 20 MEQ TAB.ER PO SCH ×2 (01:18→03:07)
[2017-01-06 06:55] LABS: Basophils % (A) 0 %; CH 30.8; CHCM 33.2; Eosinophils # (A) 0.1 k/uL (0-0.7); Eosinophils % (A) 2 %; HCT 20.6 % (34.0-46.0); HDW 2.94; Luc # (Auto) 0.24; Luc % (Auto) 3; Lymphocytes # (A) 1.3 k/uL (1.0-4.8); Lymphocytes % (A) 15 %; MCH 30.7 pg (25.0-35.0); MCV 92.9 fL (80.0-100.0); Mean Platelet Volume 7.1; Monocytes # (A) 0.4 k/uL (0-1.0); Monocytes % (A) 5 %; Neutrophils # (A) 6.8 k/uL (1.3-7.7); Neutrophils % (A) 76 %; RBC 2.22 m/uL (3.80-5.40); RDW 15.3 % (11.5-15.5); WBC (Perox) 9.31
[2017-01-06 07:09] LABS: Calcium 7.8 mg/dL (8.4-10.2); Magnesium 1.4 mg/dL (1.6-2.3); Potassium 3.9 mmol/L (3.5-5.1); Total Bilirubin 0.3 mg/dL (0.2-1.3); Total Protein 5.5 g/dL (6.3-8.2)
[2017-01-06 07:15] LABS: HGB 6.8 gm/dL (11.4-16.0)
[2017-01-06 08:30] LABS: CHCM 34.3; HCT 20.7 % (34.0-46.0); HDW 2.87; MCH 31.6 pg (25.0-35.0); MCHC 33.7 g/dL (31.0-37.0); MCV 93.5 fL (80.0-100.0); Mean Platelet Volume 7.4; RBC 2.21 m/uL (3.80-5.40); RDW 15.7 % (11.5-15.5)
[2017-01-06] MEDS ORDERED: ENOXAPARIN 40 MG/0.4 ML SYRINGE SQ SCH (09:00)
[2017-01-06] MEDS ORDERED: POTASSIUM CHLORIDE ER 20 MEQ TAB.ER PO SCH (09:00)
[2017-01-06] MEDS ORDERED: SULFAMETHOX-TMP 800-160MG 1 EACH TAB PO SCH (10:00)
--- NOTE | 2017-01-06 15:27 | P.HPIM ---
History of Present Illness H&P Date: 01/06/17 Chief Complaint: Nausea vomiting diarrhea History of presenting complaint: This is a very pleasant 71-year-old patient of Dr. Alcantara. history of GERD, hypertension, and breast cancer. Patient had breast cancer in the left breast initially giving chemotherapy. Finished in 11/20/2016. Also bilateral mastectomy. The patient 2 days ago started having nausea vomiting diarrhea no fever and no abdominal pain.*Slowing down a bit yesterday. Patient has a friend Lelo she lives with, was not sick. Does not remember eating anything out of the norm. Last and vomiting was yesterday morning. Patient was started by her family doctor on Lexapro the same time and this was stopped as this was a question if this may be causing her symptoms GEN.: Tired EYES: None HEENT: None NECK: None RESPIRATORY: None CARDIOVASCULAR: None GASTROINTESTINAL: As above GENITOURINARY: None MUSCULOSKELETAL: None LYMPHATICS: None HEMATOLOGICAL: None PSYCHIATRY: Some anxiety depression NEUROLOGICAL: None Past medical history: GERD, hypertension, breast cancer, anxiety depression Past surgical history: Left modified radical mastectomy, right simple mastectomy, Port-A-Cath, bilateral cataract Home medications: Reviewed in electronic records ALLERGIES: Adhesive tape VITAL SIGNS: 98.5, 84, 16, 155/67, 95% room air GENERAL: Average built, sitting up, tired appearing. EYES: Pupils equal. Conjunctiva normal. HEENT: Loss of scalp hair, External appearance of nose and ears normal, oral cavity grossly normal. NECK: JVD not raised; masses not palpable. HEART: First and second heart sounds are normal; no edema. LUNGS: Respiratory rate normal; clear to auscultation. ABDOMEN: Soft, nontender, liver spleen not palpable, no masses palpable. LYMPHATICS: No lymph nodes palpable in the axilla and neck. PSYCH: Alert and oriented x3; mood and affect anxietyl. NEUROLOGICAL: Cranial nerves grossly intact; no facial asymmetry, power and sensation grossly intact. Investigations: White count 9.8, hemoglobin 8.5, potassium 2.8, sodium 123, BUN 34, creatinine 4.38, UA positive BUN is 32 and creatinine 2.76 on 12/24/2016 Assessment: -Acute renal failure prerenal from nausea vomiting diarrhea -Chronic kidney disease stage IV possibly from nephrosclerosis, will need further workup -GERD -Essential hypertension -Breast cancer with bilateral mastectomy -Alopecia from chemotherapy -Anxiety depression not otherwise specified -Anemia from chemotherapy, some drop in hemoglobin likely from dilutional effect -Hyponatremia likely hypoosmolar from decreased salt intake and excessive water intake. Plan: Patient be aggressively hydrated. We'll do a renal ultrasound. We'll get a nephrology opinion. We'll start the patient back on Lexapro. Acute the patient will light diet. Care was discussed with the patient and her friend Lelo talley the bedside. Past Medical History Past Medical History: Cancer, GERD/Reflux, Hypertension Additional Past Medical History / Comment(s): LEFT BREAST CA, HAD 12 WEEKS OF CHEMO-, LAST ONE 11/20/16-THEN HAD BILATERAL MASTECTOMIES, PT HAS HX OF HTN BUT IS CURRENTLY RUNNING NORMAL PRESSURES AND HAS BEEN TAKEN OF ANTIHYPERTENSIVE RX AT THIS TIME. History of Any Multi-Drug Resistant Organisms: None Reported Past Surgical History: Breast Surgery Additional Past Surgical History / Comment(s): LEFT BREAST BX, L MODIFIED RADICAL MASTECTOMY, R SIMPLE MASTECTOMY, PORT A CATH, ALVERTO CATARACT Past Anesthesia/Blood Transfusion Reactions: No Reported Reaction, Motion Sickness Smoking Status: Never smoker - Past Family History Father History Unknown: Yes Family Medical History: Myocardial Infarction (NM) Additional Family Medical History / Comment(s): FATHER HAD A NM AT THE AGE OF 59YRS. HE AT THE AGE OF 79YRS. Mother Family Medical History: No Reported History Additional Family Medical History / Comment(s): MOTHER LIVED TO BE 92 YRS OLD. Medications and Allergies Home Medications Medication Instructions Recorded Confirmed Type Furosemide [Lasix] 20 mg PO DAILY 01/05/17 01/05/17 History Ondansetron Odt [Zofran ODT] 4 - 8 mg PO TID PRN 01/05/17 01/05/17 History Allergies Allergy/AdvReac Type Severity Reaction Status Date / Time adhesive tape Allergy PAPER TAPE Verified 01/05/17 10:34 causes rash & scabs Results CBC & Chem 7: 01/06/17 08:12 01/06/17 06:00
[2017-01-06] MEDS: LACTATED RINGERS 1,000 ML IV SCH (16:34)
[2017-01-06] MEDS: ESCITALOPRAM 10 MG TAB PO SCH (16:37)
--- NOTE | 2017-01-06 16:42 | US ---
EXAMINATION TYPE: US kidneys/renal and bladder DATE OF EXAM: 01/06/2017 COMPARISON: CT chest abdomen and pelvis August 09, 2016 CLINICAL HISTORY: Renal failure. Renal failure EXAM MEASUREMENTS: Right Kidney: 11.2 x 5.7 x 6.0 cm Left Kidney: 11.4 x 5.8 x 5.0 cm Right Kidney: no hydro or masses seen Left Kidney: no hydro or masses seen Bladder: wnl Bilateral Jets seen: no There is no evidence for hydronephrosis at this point in time. No nephrolithiasis is seen. No mohini s are identified. The urinary bladder is anechoic. Bilateral ureteral jets are not seen. IMPRESSION: No hydronephrosis is evident bilaterally.
[2017-01-06] MEDS: ALPRAZolam 0.25 MG TAB PO PRN (20:56)
[2017-01-07] MEDS: ONDANSETRON 4 MG/2 ML VIAL IVP PRN (00:32)
[2017-01-07] MEDS: ALPRAZolam 0.25 MG TAB PO PRN ×3 (02:12→20:52)
[2017-01-07] MEDS: LACTATED RINGERS 1,000 ML IV SCH ×2 (04:39→17:32)
[2017-01-07 06:29] LABS: CH 30.4; CHCM 32.2; HCT 20.9 % (34.0-46.0); HDW 2.81; MCHC 32.7 g/dL (31.0-37.0); MCV 94.8 fL (80.0-100.0); Mean Platelet Volume 6.9; RDW 15.5 % (11.5-15.5); WBC 11.8 k/uL (3.8-10.6)
[2017-01-07 06:32] LABS: HGB 6.8 gm/dL (11.4-16.0)
[2017-01-07 06:51] LABS: Calcium 8.4 mg/dL (8.4-10.2); Potassium 4.2 mmol/L (3.5-5.1)
[2017-01-07] MEDS: ENOXAPARIN 30 MG/0.3 ML SYRINGE SQ SCH (08:47)
[2017-01-07] MEDS: ESCITALOPRAM 10 MG TAB PO SCH (08:47)
--- NOTE | 2017-01-07 10:31 | P.NPCON ---
History of Present Illness - Reason for Consult Consult date: 01/07/17 - Chief Complaint HENRY, - History of Present Illness This is a 71-year-old female seen in consultation because of acute kidney injury hypokalemia and hyponatremia. Past history is complicated with breast cancer diagnosed recently in July 2016. She had bilateral disease at the time the left breast was the more significant lesion. She underwent chemotherapy and then completed her last chemotherapy on 11/20/2016. On 12/22/2016 2 weeks ago approximately she underwent bilateral mastectomy and was discharged on 12/24/2016 At the time of that admission her creatinine was 3.65 on 12/23/2016 and went down to 2.76 the next day. She came in on 01/05/2017 2 days ago with a creatinine up at 4.38. She started her nausea vomiting or 2 or 3 days with some loose stools. No fever chills no cough dizziness shortness of breath no syncope seizures. Urine output was maintained. No history of GI bleeding, hematuria dysuria frequency or any bladder problems. In the interim she might have been started on Lasix for about 2 or 3 days maximum. Denies taking any nonsteroidals or antibiotics recently. Supposedly recently her blood pressure medication been taken off because of low blood pressure but the details are not available Past Medical History Past Medical History: Cancer, GERD/Reflux, Hypertension Additional Past Medical History / Comment(s): LEFT BREAST CA, HAD 12 WEEKS OF CHEMO-, LAST ONE 11/20/16-THEN HAD BILATERAL MASTECTOMIES, PT HAS HX OF HTN BUT IS CURRENTLY RUNNING NORMAL PRESSURES AND HAS BEEN TAKEN OF ANTIHYPERTENSIVE RX AT THIS TIME. History of Any Multi-Drug Resistant Organisms: None Reported Past Surgical History: Breast Surgery Additional Past Surgical History / Comment(s): LEFT BREAST BX, L MODIFIED RADICAL MASTECTOMY, R SIMPLE MASTECTOMY, PORT A CATH, ALVERTO CATARACT Past Anesthesia/Blood Transfusion Reactions: No Reported Reaction, Motion Sickness Smoking Status: Never smoker - Past Family History Father History Unknown: Yes Family Medical History: Myocardial Infarction (PR) Additional Family Medical History / Comment(s): FATHER HAD A PR AT THE AGE OF 59YRS. HE AT THE AGE OF 79YRS. Mother Family Medical History: No Reported History Additional Family Medical History / Comment(s): MOTHER LIVED TO BE 92 YRS OLD. Medications and Allergies Home Medications Medication Instructions Recorded Confirmed Type Furosemide [Lasix] 20 mg PO DAILY 01/05/17 01/05/17 History Ondansetron Odt [Zofran ODT] 4 - 8 mg PO TID PRN 01/05/17 01/05/17 History Allergies Allergy/AdvReac Type Severity Reaction Status Date / Time adhesive tape Allergy PAPER TAPE Verified 01/05/17 10:34 causes rash & scabs Physical Exam Vitals: Vital Signs Temp Pulse Resp BP Pulse Ox 01/07/17 07:00 98.3 F 80 20 121/58 97 01/07/17 00:00 18 01/06/17 23:00 99.1 F 94 18 134/64 97 01/06/17 15:00 97.5 F L 84 18 137/63 98 Intake and Output 01/06/17 01/07/17 01/07/17 22:59 06:59 14:59 Other: Voiding Method Toilet # Voids 2 2 Weight 73.5 kg 73.5 kg Patient Weight 01/08/17 06:59 Weight 73.5 kg On examination she is somewhat pale and otherwise awake alert oriented HEENT exam no JVP lymphadenopathy thyromegaly no carotid bruit neck is supple no facial asymmetry Lungs are clear to auscultation percussion good air entry bilaterally. There are occasional basal coarse crackles that cleared with cough. Heart sounds are unremarkable for any murmur rub gallop Abdomen is soft nontender no organomegaly status masses Extremity exam was no edema Neurologically awake alert oriented Extremities are warm to touch. There is no rash petechiae. Results - Lab Results Most recent lab results Calcium 8.4 mg/dL (8.4-10.2) 01/07/17 06:20 Magnesium 1.4 mg/dL (1.6-2.3) L 01/06/17 06:00 01/07/17 06:20 01/07/17 06:20 Assessment and Plan Plan: Impression 1. Acute kidney injury secondary to likely volume depletion from nausea vomiting diarrhea and diuretics. An element of low blood pressure in my have added to the acute kidney injury. Baseline creatinine 0.74 on 08/09/2016 has gone up to 3.651 12/13/2016 when she was admitted for bilateral mastectomy, transiently creatinine improved to 2.76 on 12/24/2016 at the time of her discharge and then came up to peak at 4.38 as of 01/05/2017 this admission. Urinalysis benign, creatinine is improved with hydration to 3.24, calcium is normal at 7.8 with albumin of 2.5. Uric acid is not available. Ultrasound shows normal kidney size that 11.2 and 11.4 cm. 5. Anemia of chronic illness. Recommendation. 1. Continue IV fluids 2. Hypokalemia secondary to nausea vomiting diarrhea Lasix. Potassium is 3.2 improved to 4.2 this morning. 3. Hyponatremia secondary to acute kidney injury sodium improved from 132-139. 4. Mild degree of non-gap acidosis with bicarb 17 and anion gap of 8 secondary to diarrhea and acute kidney injury. Recommendation. 1. Continue IV fluids currently she is on lactated Ringer's at 125 mL an hour. 2. Avoid any nephrotoxic medication for now. 3. Will hold off any antihypertensive medication for now. 4. Check serum uric acid. 5. Add sodium bicarb by mouth 650 mg, 4 times a day Thank you for this consultation, will follow closely with you
[2017-01-07] MEDS: SODIUM BICARBONATE TAB 650 MG TAB PO SCH ×3 (17:36→20:52)
--- NOTE | 2017-01-07 19:24 | P.PN ---
<oJse Louis - Last Filed: 01/07/17 20:08> Progress Note - Text Attending note. Date of service-01/07/2013 This patient was seen and examined by me . Discussed the patient with my nurse practitioner Ms. Ovalle. Bouts of diarrhea present. Lexapro stop. Patient feels rather anxious and depressed. On examination: Lungs-clear, cardio vascular first seconds are normal. Abdomen soft nontender Investigations: Hemoglobin 6.8, white count 11.8, BUN 26, creatinine 3.24 Assessment and plan: Acute diarrhea could be viral will check for one parasites Hyponatremia improved. Symptomatic anemia patient feeling weak and tired, the anemia could be from chronic kidney disease, could be from chemotherapy cannot rule out a GI cause. Anxiety depression uncontrolled. We'll send a stool for one parasites. Consider GI the view to possible endoscopy. Consult psychiatry. Care was discussed with the patient and members at the bedside. We'll transfuse 1 unit of blood blood. We will continue to hydrate the patient. Repeat labs in the morning. <Makenzie Ovalle - Last Filed: 01/07/17 21:08> Progress Note - Text DATE OF SERVICE: 01/07/2017 PRESENTING COMPLAINT: Nausea vomiting diarrhea HISTORY OF PRESENT ILLNESS: 71-year-old female status post bilateral mastectomy began having nausea vomiting and diarrhea for the previous 2 days. Recently started on Lexapro and this was stopped as it was felt this may be the offending agent. Diagnostics revealed acute renal failure. INTERVAL HISTORY: 01/07/2017: Patient sitting in a chair at the bedside very anxious appearing. States she did not sleep well overnight and had many episodes of nausea as well as diarrhea. States Lexapro had been restarted now has been stopped. Hemoglobin low discussed with patient and will decide if transfusion is necessary. Patient had several other concerns which were discussed particularly about anxiety and depression, ways to combat it.Renal function remains elevated, nephrology on consult. Able to tolerate light foods but not very much barely 20% , continues to have feelings of nausea, has the diarrhea so is having multiple bowel movements. Ambulatory in the room. REVIEW OF SYSTEMS: Done for constitutional ,cardiovascular, GI, pulmonary with relevant findings as above. CURRENT MEDICATIONS Coy, Xanax, ceftriaxone, Lovenox, Zofran. PHYSICAL EXAM VITAL SIGNS: Temperature 98.5, pulse 77, respiratory rate 18, blood pressure 128/79, oxygen saturation 97% on room air. GENERAL APPEARANCE: Lying in bed, not in distress but anxious. EYES: Pupils equal. Conjunctiva normal. NECK: JVD not raised. Mass not palpable. RESPIRATORY: Respiratory effort normal. Lungs clear to auscultation. CARDIOVASCULAR: First and second sounds normal. No edema. ABDOMEN: Soft. Liver and spleen not palpable. No tenderness. No mass palpable. PSYCHIATRY: Alert and oriented x3. Mood and affect highly anxious. INVESTIGATIONS: Hemoglobin 6.8, sodium 139, potassium 4.2, BUN 26, creatinine 3.24 ASSESSMENT: -Acute kidney injury prerenal likely due to volume depletion from nausea vomiting diarrhea, and diuretics improving -Chronic kidney disease stage IV possibly from nephrosclerosis, will need further workup -GERD -Essential hypertension -Breast cancer with bilateral mastectomy -Alopecia from chemotherapy -Anxiety depression not otherwise specified -Anemia multifactorial, from chronic disease, delusional effect, side effect of chemotherapy hemoglobin 6.8, transfused 1 unit packed red cells -Hyponatremia likely hypoosmolar from decreased salt intake and excessive water intake. PLAN: We'll continue IV fluids, avoid nephrotoxic medications, continue sodium bicarb. Continues to have the diarrhea we'll send specimen for ova and parasites, hemoglobin 6.8 today patient will receive 1 unit of packed red cells. We'll consult GI to further investigate anemia as well as psychiatry as patient is very anxious and has a component of depression related to her current illness state. Plan of care discussed with the patient at the bedside she is in agreement. We will continue to follow closely. ENERGY ANALYST statement: Patient was seen and examined by nurse practitioner Makenzie Ovalle and all elements of the case discussed with attending Dr. Louis
[2017-01-08] MEDS: LACTATED RINGERS 1,000 ML IV SCH ×4 (02:12→18:02)
[2017-01-08] MEDS: ALPRAZolam 0.25 MG TAB PO PRN ×3 (02:53→21:19)
[2017-01-08 06:13] LABS: Anisocytosis Slight; Basophils % (A) 0 %; CH 30.1; CHCM 32.5; Eosinophils # (A) 0.3 k/uL (0-0.7); Eosinophils % (A) 4 %; HCT 22.7 % (34.0-46.0); HDW 3.03; HGB 7.5 gm/dL (11.4-16.0); Luc # (Auto) 0.21; Luc % (Auto) 2; Lymphocytes # (A) 1.5 k/uL (1.0-4.8); Lymphocytes % (A) 16 %; MCH 30.7 pg (25.0-35.0); MCV 93.2 fL (80.0-100.0); Mean Platelet Volume 6.9; Monocytes # (A) 0.6 k/uL (0-1.0); Monocytes % (A) 6 %; Neutrophils # (A) 6.6 k/uL (1.3-7.7); Neutrophils % (A) 72 %; RBC 2.44 m/uL (3.80-5.40); RDW 16.4 % (11.5-15.5); WBC 9.3 k/uL (3.8-10.6); WBC (Perox) 9.16
[2017-01-08 06:21] LABS: Calcium 8.1 mg/dL (8.4-10.2); Potassium 3.7 mmol/L (3.5-5.1)
[2017-01-08] MEDS: SODIUM BICARBONATE TAB 650 MG TAB PO SCH ×4 (08:31→21:53)
[2017-01-08] MEDS: ENOXAPARIN 30 MG/0.3 ML SYRINGE SQ SCH (08:32)
[2017-01-08] MEDS: ESCITALOPRAM 10 MG TAB PO SCH (08:32)
[2017-01-08 08:48] LABS: % Iron Saturation 38.9 % (20-50)
--- NOTE | 2017-01-08 10:17 | P.PN ---
Subjective Principal diagnosis: This is a 71-year-old female seen in consultation because of acute kidney injury hypokalemia and hyponatremia. This was deemed to be from volume depletion. She was given IV fluids with creatinine coming down. This morning she continues to feel somewhat fatigued but somewhat better after having transfuse 1 unit of packed cells last night. Hemoglobin went up to 7.5 from 6.8. Her creatinine is improved to 2.5 and from high of 4.38. She is on Ringer's lactate 125 mL an hour. Past history is complicated with breast cancer diagnosed recently in July 2016. She had bilateral disease at the time the left breast was the more significant lesion. She underwent chemotherapy and then completed her last chemotherapy on 11/20/2016. On 12/22/2016 2 weeks ago approximately she underwent bilateral mastectomy and was discharged on 12/24/2016 At the time of that admission her creatinine was 3.65 on 12/23/2016 and went down to 2.76 the next day. She came in on 01/05/2017 2 days ago with a creatinine up at 4.38. She started her nausea vomiting or 2 or 3 days with some loose stools. No fever chills no cough dizziness shortness of breath no syncope seizures. Urine output was maintained. No history of GI bleeding, hematuria dysuria frequency or any bladder problems. In the interim she might have been started on Lasix for about 2 or 3 days maximum. Denies taking any nonsteroidals or antibiotics recently. Supposedly recently her blood pressure medication been taken off because of low blood pressure but the details are not available Objective - Vital Signs Vital signs: Vital Signs Temp 98.4 F 01/08/17 07:00 Pulse 86 01/08/17 07:00 Resp 16 01/08/17 07:00 BP 154/76 01/08/17 07:00 Pulse Ox 95 01/08/17 07:00 Intake & Output 01/07/17 01/08/17 01/08/17 18:59 06:59 18:59 Intake Total 1000 2820 Balance 1000 2820 Weight 73.5 kg Intake: Intake, IV Titration 1000 2000 Amount Lactated Ringers 1,000 ml 1000 2000 @ 125 mls/hr IV .Q8H JOE Rx#:[id number] Oral 200 Blood Product 620 Rc As-1 Unit 310 [id number] Other: Voiding Method Toilet Toilet # Voids 3 # Bowel Movements 2 On examination she is awake alert oriented pale looking. HEENT exam no JVP neck supple no facial asymmetry Lungs clear to auscultation percussion good air entry bilaterally. Heart sounds are unremarkable for any murmur rub gallop. Abdomen soft nontender. Extremity exam was no edema Neurologically awake alert oriented no focal motor deficit. - Labs CBC & Chem 7: 01/08/17 06:02 01/08/17 06:02 Labs: Abnormal Lab Results - Last 24 Hours (Table) 01/07/17 01/08/17 01/08/17 Range/Units 17:30 06:02 06:02 RBC 2.44 L (3.80-5.40) m/uL Hgb 7.5 L (11.4-16.0) gm/dL Hct 22.7 L (34.0-46.0) % RDW 16.4 H (11.5-15.5) % Chloride 114 H (98-107) mmol/L Carbon Dioxide 15 L (22-30) mmol/L BUN 19 H (7-17) mg/dL Creatinine 2.51 H (0.52-1.04) mg/dL Calcium 8.1 L (8.4-10.2) mg/dL TIBC (265-497) ug/dL Crossmatch See Detail 01/08/17 Range/Units 06:02 RBC (3.80-5.40) m/uL Hgb (11.4-16.0) gm/dL Hct (34.0-46.0) % RDW (11.5-15.5) % Chloride (98-107) mmol/L Carbon Dioxide (22-30) mmol/L BUN (7-17) mg/dL Creatinine (0.52-1.04) mg/dL Calcium (8.4-10.2) mg/dL TIBC 198 L (265-497) ug/dL Crossmatch Assessment and Plan Plan: Impression 1. Acute kidney injury secondary to likely volume depletion from nausea vomiting diarrhea and diuretics. An element of low blood pressure my have added to the acute kidney injury. Baseline creatinine 0.74 on 08/09/2016 has gone up to 3.651 12/13/2016 when she was admitted for bilateral mastectomy, transiently creatinine improved to 2.76 on 12/24/2016 at the time of her discharge and then came up to peak at 4.38 as of 01/05/2017 this admission. Urinalysis benign, except for some pyuria with normal urine culture. Creatinine continues to improve with hydration to 2.51 from a peak of 4.38. Ultrasound shows normal kidney size that 11.2 and 11.4 cm. 2. Hypokalemia secondary to nausea vomiting diarrhea Lasix. Potassium is 3.2 improved to 4.2 this morning. 3. Hyponatremia secondary to acute kidney injury sodium improved from 132-139. 4. Mild degree of non-gap acidosis with bicarb 17 and anion gap of 8 secondary to diarrhea and acute kidney injury. 5. Anemia of chronic illness. Hemoglobin improved posttransfusion to 7.5. Saturation 30% Recommendation. 1. Continue IV fluids currently she is on lactated Ringer's at 125 mL an hour. 2. Avoid any nephrotoxic medication for now. 3. Will hold off any antihypertensive medication for now. 4. Check serum uric acid. 5. Continue sodium bicarb by mouth 650 mg, 4 times a day Thank you for this consultation, will follow closely with you
[2017-01-08 12:37] LABS: Appearance,Urine Clear (Clear); Bacteria,Urine Rare /hpf; Bilirubin,Urine Negative (Negative); Glucose,Urine (UA) Negative (Negative); Ketones,Urine Negative (Negative); Leukocyte Esterase,Urine Large (Negative); Nitrite,Urine Negative (Negative); Particle Count 1086; Protein,Urine Trace (Negative); RBC,Urine 2 /hpf (0-5); Specific Gravity,Urine 1.003 (1.001-1.035); UA Billing (MACRO vs. MICRO) MICRO; Urobilinogen,Urine <2.0 mg/dL (<2.0); WBC,Urine 38 /hpf (0-5)
--- NOTE | 2017-01-08 15:01 | CONS ---
CONSULTATION REQUESTING PHYSICIAN: Dr. Louis and Dr. Correa. REASON FOR CONSULTATION: Severe symptomatic anemia. HISTORY OF PRESENT ILLNESS: The patient is a 71-year-old, pleasant white female, who was admitted to hospital because of nausea, vomiting and diarrhea that started about a week ago. She has been having about 4-5 loose bowel movements daily. She denies any blood or mucus in the stool. She had several episodes of emesis but this morning is feeling much better. She has some cramping abdominal pain also. She was noted at the time of admission to the hospital also to have a hemoglobin of 6.8 and hence we are consulted in regards to this issue. She denies any rectal bleeding or melena. She received 1 unit of blood transfusion last night and repeat CBC in the morning is pending. The patient recently was diagnosed with breast cancer in July of 2016. She underwent chemotherapy and her last chemo was November 20. Two weeks ago she underwent bilateral mastectomy. She denies any recent travel history. Denies any recent antibiotic use. She denies any prior history of peptic ulcer disease. She takes Motrin as needed. Never had EGD and colonoscopy in the past. PAST MEDICAL HISTORY: Significant for gastroesophageal reflux disease, hypertension, breast cancer. PAST SURGICAL HISTORY: Bilateral mastectomy 2 weeks ago. Cataract surgery. MEDICATIONS: At home: Lasix, Zofran. ALLERGIES: None. FAMILY HISTORY: Father with coronary artery disease. Mother none. REVIEW OF SYSTEMS: CARDIOPULMONARY: No chest pain or shortness of breath. GENITOURINARY: No dysuria or hematuria. MUSCULOSKELETAL: Unremarkable. ENDOCRINE: Unremarkable. PSYCHIATRIC: Unremarkable. NEUROLOGICAL: Unremarkable. ENT/VISION: Unremarkable. CONSTITUTIONAL: No recent weight loss. No fever, chills or night sweats. PHYSICAL EXAMINATION: Blood pressure is 133/69, pulse 82, temperature 98.4. HEENT: Unremarkable. Conjunctivae pink. Sclerae anicteric. Oral cavity no lesions. NECK: No JVD or lymph node enlargement. Chest was clear to auscultation. HEART: Regular rate and rhythm. Abdomen is soft. It was nontender, nondistended. Bowel sounds are positive. No organomegaly. EXTREMITIES: No pedal edema. SKIN: No rash. NEUROLOGIC: Alert and oriented x3. No focal deficits. LABS: Labs at the time of admission to the hospital: Hemoglobin was 7, WBC 9, platelets 330, BUN 30, creatinine 3.84. This morning BUN is down to 19, creatinine is down to 2.5. She received 1 unit of blood and hemoglobin is 7.5 g/dL. C diff toxin has been reported as negative. IMPRESSION: 1. The patient was admitted to the hospital with acute onset of nausea vomiting diarrhea for the last 1 week duration. Most likely infectious in etiology. The symptoms are gradually improving. Stool studies for C diff toxin is negative. Other stool studies are still pending at the time of this dictation. 2. Severe symptomatic anemia with a hemoglobin of 7, normocytic. Clinically no evidence of active ongoing bleeding. Most likely we are dealing with anemia of chronic disease but component of iron deficiency cannot be excluded. 3. Acute renal failure. Nephrology following the patient closely. 4. Recent bilateral mastectomy and history of breast cancer diagnosed in July of this year, status post chemotherapy which ended about 6 weeks ago. RECOMMENDATIONS: 1. We will obtain stool studies. 2. Continue with antiemetics. 3. Workup for anemia including iron studies. 4. Discussed with her. If we are dealing with iron-deficient anemia will consider an upper endoscopy as well as colonoscopy during this hospitalization. The plan was discussed with the patient. She is agreeable to it. Thank you for this consultation. MMBARTL / IJN: [id number] /
[2017-01-08] MEDS: DRONABINOL 2.5 MG CAP PO SCH (17:50)
[2017-01-08] MEDS: DIPHENOX-ATROP 2.5-0.025 MG 1 EACH TAB PO SCH ×2 (17:50→21:53)
[2017-01-08] MEDS ORDERED: EPINEPHrine 1 MG/ML 1 ML AMP IM STA (20:21)
[2017-01-08] MEDS ORDERED: methylPREDNISolone SOD SUCCI 125 MG/2 ML VIAL IV STA (20:22)
[2017-01-08] MEDS: diphenhydrAMINE 50 MG/ML 1 ML VIAL IVP PRN (20:53)
[2017-01-08] MEDS: FAMOTIDINE 20 MG/2 ML VIAL IV SCH (20:58)
[2017-01-08] MEDS: CEFUROXIME 250 MG TAB PO SCH (21:54)
[2017-01-09] MEDS: LACTATED RINGERS 1,000 ML IV SCH ×2 (05:42→14:55)
[2017-01-09 06:26] LABS: Calcium 8.4 mg/dL (8.4-10.2); Potassium 4.3 mmol/L (3.5-5.1)
--- NOTE | 2017-01-09 07:50 | PN ---
PROGRESS NOTE DATE OF SERVICE: 01/08/2017. PRESENTING COMPLAINT: Nausea, vomiting and diarrhea. INTERVAL HISTORY: This patient admitted with acute gastroenteritis, now diarrhea is getting better. Seen by GI for further outpatient workup. Also had renal failure. History of chronic component. Not much of an appetite. Occasional nausea. REVIEW OF SYSTEMS: Review of systems done for constitutional, cardiovascular, GI, pulmonary; relative findings as above. CURRENT MEDICATIONS: Reviewed that include IV ceftriaxone and Lactate Ringers. EXAMINATION: Temp 98.7, pulse 82, respirations 16, blood pressure 144/69, pulse 95% on room air. GENERAL APPEARANCE: Sitting up, tired-appearing. EYES: Pupils equal. Conjunctivae normal. NECK: JVD not raised. RESPIRATORY: Effort normal. LUNGS: Clear. CARDIOVASCULAR: First and second sounds normal. No edema. ABDOMEN: Soft, nontender. Liver and spleen not palpable. PSYCHIATRY: Alert and oriented x3. Mood and affect anxious appearing. INVESTIGATIONS: White count 9.3, hemoglobin 7.5, potassium 3.7, bicarb 15, BUN 19, creatinine 2.51. ASSESSMENT: 1. Acute kidney injury, prerenal, likely due to volume depletion from nausea, vomiting, diarrhea and diuretic use. 2. Chronic kidney disease stage 4 possibly from hypertensive nephrosclerosis. 3. Gastroesophageal reflux disease. 4. Essential hypertension. 5. Breast cancer, bilateral mastectomy. 6. Alopecia from chemotherapy. 7. Anxiety and depression, not otherwise specified. 8. Anemia multifactorial including from chronic disease and dilution effect from chemotherapy. 9. Hyponatremia likely hypoosmolar from decreased oral intake. PLAN: Care was discussed at length with the patient and friend at bedside. Will add some Lomotil for the diarrhea. We will also add Marinol for appetite stimulant and also help with nausea. Renal function to be continued to follow. MMODL / IJN: [id number] /
[2017-01-09 07:52] VITALS: BP 144/70; PULSE 88; RESP 18; TEMP 98
[2017-01-09] MEDS: SODIUM BICARBONATE TAB 650 MG TAB PO SCH ×2 (08:19→14:56)
[2017-01-09] MEDS: FAMOTIDINE 20 MG/2 ML VIAL IV SCH (08:20)
[2017-01-09] MEDS: ENOXAPARIN 30 MG/0.3 ML SYRINGE SQ SCH (08:21)
[2017-01-09] MEDS: CEFUROXIME 250 MG TAB PO SCH (08:22)
[2017-01-09] MEDS: DIPHENOX-ATROP 2.5-0.025 MG 1 EACH TAB PO SCH (08:23)
[2017-01-09] MEDS: DRONABINOL 2.5 MG CAP PO SCH (08:23)
[2017-01-09] MEDS ORDERED: predniSONE 20 MG TAB PO SCH (09:00)
--- NOTE | 2017-01-09 09:12 | P.PN ---
Subjective Principal diagnosis: Nausea vomiting diarrhea anemia Well today. Tolerating diet. No reports of nausea vomiting diarrhea. Upper lip swollen unsure why possible allergic reaction. Iron indices low. Ferritin pending. Objective - Vital Signs Vital signs: Vital Signs Temp 98.2 F 01/08/17 22:51 Pulse 110 H 01/08/17 22:51 Resp 16 01/08/17 22:51 BP 148/69 01/08/17 22:51 Pulse Ox 95 01/08/17 22:51 Intake & Output 01/08/17 01/09/17 01/09/17 18:59 06:59 18:59 Intake Total 1190 Balance 1190 Intake: Intake, IV Titration 600 Amount Lactated Ringers 1,000 ml 600 @ 75 mls/hr IV .[id number] JOE Rx#:[id number] Oral 590 Other: Voiding Method Toilet Toilet # Voids 4 2 # Bowel Movements 1 - Exam General appearance: The patient is alert, oriented, in no acute distress. Hair thin distribution. HET: Head is normocephalic and atraumatic. Pupils are equal and reactive. Oropharynx is clear without lesions. Neck: Supple without lymphadenopathy. Trachea midline. Heart: S1 S2. Regular rate and rhythm. Lungs: No crackles or wheezes are heard. Abdomen: Soft, nontender, nondistended with bowel sounds. No peritoneal signs. No palpable organomegaly or masses. Extremities: Normal skin color and turgor. No cyanosis, rash, ulceration, clubbing, or edema. Radial and pedal pulses are 2/4 bilaterally. Neurological: No focal deficits. Strength and sensation are grossly intact. - Labs CBC & Chem 7: 01/08/17 06:02 01/09/17 05:55 Labs: Abnormal Lab Results - Last 24 Hours (Table) 01/08/17 01/08/17 01/08/17 Range/Units 06:02 11:51 12:00 Chloride (98-107) mmol/L Carbon Dioxide (22-30) mmol/L BUN (7-17) mg/dL Creatinine (0.52-1.04) mg/dL Glucose (74-99) mg/dL TIBC 198 L (265-497) ug/dL Urine Protein Trace H (Negative) Urine Blood Small H (Negative) Ur Leukocyte Esterase Large H (Negative) Urine WBC 38 H (0-5) /hpf Urine Bacteria Rare H (None) /hpf Stool Occult Blood Positive H (Negative) 01/09/17 Range/Units 05:55 Chloride 113 H (98-107) mmol/L Carbon Dioxide 16 L (22-30) mmol/L BUN 18 H (7-17) mg/dL Creatinine 2.22 H (0.52-1.04) mg/dL Glucose 157 H (74-99) mg/dL TIBC (265-497) ug/dL Urine Protein (Negative) Urine Blood (Negative) Ur Leukocyte Esterase (Negative) Urine WBC (0-5) /hpf Urine Bacteria (None) /hpf Stool Occult Blood (Negative) Microbiology - Last 24 Hours (Table) 01/08/17 12:00 Stool for WBCs - Final Stool 01/08/17 12:00 Stool Culture - Preliminary Stool Assessment and Plan (1) Nausea vomiting and diarrhea Narrative/Plan: Possible self-limiting infectious colitis Status: Acute (2) Anemia Narrative/Plan: iron deficient Status: Acute (3) Breast carcinoma Narrative/Plan: History of breast carcinoma s/p bilateral mastectomy Status: Resolved Plan: 1. Discharge per medicine. 2. Follow-up GI office after discharge to discuss outpatient colonoscopy. Patient states she will make the appointment after discussing this with her oncologist. Assessment and plan of care discussed with Dr. Lorenzo
[2017-01-09] MEDS: diphenhydrAMINE 50 MG/ML 1 ML VIAL IVP PRN (10:01)
--- NOTE | 2017-01-09 16:29 | P.CN ---
Psychiatric Consult - . Consult date: 01/09/17 Consult:: 01/09/17 16:18 Identification and Reason for Consult: Patient is a 71-year-old female who was admitted due to dehydration, nausea and vomiting and diarrhea and a consult was requested for anxiety. Patient's chart was reviewed and the patient was seen in her room and no family members were present. History of Present Illness: Patient states that in July she was diagnosed with breast cancer and initially had 12 weeks of chemotherapy prior to her surgery, she had a bilateral mastectomy. Patient states that she was anxious at home which started at the time of her cancer diagnosis and was prescribed Xanax which she used on an occasional basis. Patient also states that at home she was crying about the diagnosis and states that her physician prescribed Lexapro for her. She is unclear about the dosage but states this and she took it she felt nauseated and stopped after 2 doses and states the nausea and vomiting continued as well as diarrhea. Patient was admitted to the hospital and told she was dehydrated and she is also received a unit of blood. Patient states that she has been anxious about the diagnosis and has concerns about the future and states that she feels uncertain about making plans. She states that she likes to be in control and that this has made her feel as though she is not in control. Patient states that at the same time she received her diagnosis of cancer she had returned home from [place] and a friend of 40 years became ill and eventually . Patient reports no prior history of any psychiatric treatment, she denies any prior history of depressive symptoms, manic symptoms or psychotic symptoms. She also reports that she has never been an anxious person in the past. Patient states that she has to follow-up with her oncologist regarding further care for her cancer at this time. Patient describes her anxiety as worrying about her diagnosis and the course of care, having crying spells at times about the diagnosis and worrying about the future will hold. Past Psychiatric History: Eyes any prior inpatient or outpatient psychiatric treatment. He was placed on Lexapro and had a side effect of nausea and vomiting. Patient was also given Xanax in the past at the time of her diagnosis of cancer and she used it intermittently at home 0.25 mg. patient has no history of prior suicide attempts. Past Medical/Surgical History: GERD, hypertension, she hasn't breast cancer diagnosis status post chemotherapy and bilateral mastectomy she is status post bilateral cataract surgery. C Current Medications Acetaminophen (Tylenol Tab) 650 mg PO Q6HR PRN PRN Reason: Mild Pain or Fever > 100.5 Last Admin: 01/08/17 14:39 Dose: 650 mg Hydrocodone Bitart/Acetaminophen ([place]risco 5-325) 1 each PO Q4HR PRN PRN Reason: Moderate Pain Alprazolam (Xanax) 0.25 mg PO Q6HR PRN PRN Reason: Anxiety Last Admin: 01/08/17 21:19 Dose: 0.25 mg Cefuroxime Axetil (Ceftin) 250 mg PO BID [facility] Last Admin: 01/09/17 08:22 Dose: 250 mg Diphenhydramine HCl (Benadryl) 25 mg IVP Q6HR PRN PRN Reason: Allergy Symptoms Last Admin: 01/09/17 10:01 Dose: 25 mg Diphenoxylate HCl/Atropine (Lomotil) 1 each PO TID [facility] Last Admin: 01/09/17 08:23 Dose: Not Given Dronabinol (Marinol) 5 mg PO AC-BID [facility] Last Admin: 01/09/17 08:23 Dose: 5 mg Enoxaparin Sodium (Lovenox) 30 mg SQ DAILY [facility] Last Admin: 01/09/17 08:21 Dose: 30 mg Famotidine (Pepcid) 20 mg IV Q12HR [facility] Last Admin: 01/09/17 08:20 Dose: 20 mg Lactated Ringer's (Lactated Ringers) 1,000 mls @ 75 mls/hr IV .[id number] [facility] Last Admin: 01/09/17 14:55 Dose: Not Given Miscellaneous Information (Potassium Per Protocol) 1 each MISCELLANE DAILY PRN ; Protocol PRN Reason: Per Protocol Naloxone HCl (Narcan) 0.2 mg IV Q2M PRN PRN Reason: Opioid Reversal Ondansetron HCl (Zofran) 4 mg IVP Q8HR PRN PRN Reason: Nausea And Vomiting Last Admin: 01/07/17 00:32 Dose: 4 mg Prednisone () 40 mg PO DAILY [facility] Last Admin: 01/09/17 08:19 Dose: 40 mg Sodium Bicarbonate (Sodium Bicarbonate Tab) 650 mg PO QID [facility] Last Admin: 01/09/17 14:56 Dose: 650 mg Social History: [Patient has never been and lives with her partner for the last 21 years. She has no children. 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 She reports a active social life with a large support group and that she was active prior to her diagnosis. Patient reports since her diagnosis she is not engaged in many of the recreational and other activities that she was doing in the past. She reports no problems in her relationship and no financial difficulties. Substance Use History: Patient reports using alcohol on an occasional basis and reports no prior current drug use history and no tobacco use history. Mental Status: Appearance/Attitude: Patient is sitting up in bed in no acute distress and she was cooperative made good eye contact. Behavior: Patient displays no psychomotor agitation or retardation. Speech/Language: Patient's speech is spontaneous and of normal volume and rhythm and she is coherent. Thought Process: Patient was goal-directed there is no evidence of circumstantial or tangential thought and no loose associations or flight of ideas. Thought Content: Patient denies any auditory or visual hallucinations no delusions or paranoid ideation were elicited. Patient reports that she has some concerns and anxiety about her diagnosis and how all affect her life, she states she feels not in control of her life anymore and has uncertainties about making plans for the future. Patient reports crying spells at times states this is in relationship to her thoughts about her diagnosis. Patient states that her appetite has been poor. Suicidal/Homicidal Ideation: Patient denies any current suicidal or homicidal ideation. Sensorium/Cognition: Patient is alert and oriented to person, place, and time and her memory is grossly intact. Mood/Affect: Patient's mood is pleasant and euthymic and her affect is appropriate. Insight/Judgement: Patient's insight and judgment are intact. Assessment: Patient has anxiety and concerns regarding her recent diagnosis of breast cancer and is recently completed 12 weeks of chemotherapy and is now currently status post bilateral mastectomy. Patient began Lexapro because she was having crying spells and developed nausea and vomiting after 2 doses. Patient is also been using Xanax at home due to her complaints of feeling anxious and worried about her diagnosis. Patient has no prior history of psychiatric care and has no prior history of treatment with any psychotropic medication. Diagnosis: Adjustment reaction with mixed emotions. Plan: I had a long discussion with the patient about her diagnosis and her response to the diagnosis as well as her complaints of anxiety and a lack of control. I recommended to the patient that she not use the Xanax at home and consider doing meditation, guided imagery were deep breathing. I also recommended to the patient that when she returns to the cancer Center that she ask about counseling to assist her in coping with her diagnosis. I also recommended to the patient that she return to some of her prior activities with her friends prior to her diagnosis of cancer. I do not recommend beginning any psychotropic medication at this time the patient does not of any evidence of a major depression nicely no reason for antidepressant medication and her symptoms of anxiety related to her recent diagnosis and treatment and would not recommend any medication for this at that time as well. I will sign off the case there are any questions or concerns please and has stayed to contact me.
--- NOTE | 2017-01-09 20:04 | P.DS ---
Providers Date of admission: 01/05/17 11:19 Expected date of discharge: 01/09/17 Attending physician: Jose Louis Consults: 01/06/17 15:28 Consult Physician Routine Consulting Provider: Quinton Fall Consult Reason/Comments: Renal failure Do you want consulting provider notified?: Yes 01/08/17 13:29 Consult Physician Routine Consulting Provider: Ronan Tellez Consult Reason/Comments: anxiety Do you want consulting provider notified?: Yes Primary care physician: [facility] Course: FINAL DIAGNOSES: -Acute kidney injury, prerenal likely due to volume depletion from nausea, vomiting, diarrhea and diuretic use. -Chronic kidney disease stage IV possibly from hypertensive nephrosclerosis. -Gastroesophageal reflux disease. -Essential hypertension. -Breast cancer, bilateral mastectomy. 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 -Anxiety depression not otherwise specified. -Anemia multifactorial from chronic kidney disease and delusional effect from chemotherapy. -Hyponatremia likely hypoosmolar from decreased oral intake. -Acute angioedema secondary to unknown ALLERGIC reaction, improved HOSPTIAL COURSE: 71-year-old patient with history significant for breast cancer status post chemotherapy and bilateral mastectomy, admitted for nausea vomiting and diarrhea. Labs were drawn patient found to be in acute renal failure, received aggressive hydration, renal ultrasound, nephrology consult. Consulted her oncologist. GI consulted, stool studies sent, severe symptomatic anemia noted hemoglobin of 7, no active bleeding occurring, 1 unit of packed red cells transfused. Recommend outpatient colonoscopy. Psychiatry consulted as she had Lexapro on board and it was causing difficulties, recommend no further use of Xanax or Lexapro consider doing meditation guided imagery and deep breathing as well as getting counseling from the cancer Center regarding coping with her diagnosis. Nephrology continued IV fluids, and added sodium bicarbonate. Patient developed some acute angioedema to her upper lip from unknown source, received Solu-Medrol, EpiPen, and Benadryl, upper lip returned to normal no further swelling.No further nausea, vomiting, diarrhea. Patient tolerating her diet, ambulating in the room and august, last BM 01/08/2017. Patient is anxious to go home condition stable she will be discharged today. PHYSICAL EXAM: CARDIOVASCULAR: First and second sounds noted no edema RESPIRATORY: Effort normal, clear to auscultation bilaterally GI: Abdomen soft nontender, liver and spleen not palpable, bowel sounds 4 quadrants MOUTH: Upper lip stenosis slight amount of swelling Patient was seen and examined by nurse practitioner Makenzie Ovalle in all elements of the case discussed with attending Dr. Louis DISPOSITION: Home to the care of her family and friend Patient Condition at Discharge: Stable Plan - Discharge Summary New Discharge Prescriptions: New Cefuroxime [Ceftin] 250 mg PO BID #6 tab diphenhydrAMINE [Benadryl] 25 mg PO TID #6 capsule Diphenox-Atrop 2.5-0.025 mg [Lomotil] 1 each PO TID PRN #20 tab PRN Reason: Diarrhea Dronabinol [Marinol] 5 mg PO AC-BID #60 cap predniSONE See Taper PO DIRECTED #6 tab Sodium Bicarbonate Tab 650 mg PO TID #50 tab Continue Ondansetron Odt [Zofran ODT] 4 - 8 mg PO TID PRN PRN Reason: nausea Discontinued Furosemide [Lasix] 20 mg PO DAILY Discharge Medication List Ondansetron Odt [Zofran ODT] 4 - 8 mg PO TID PRN 01/05/17 [History] Cefuroxime [Ceftin] 250 mg PO BID #6 tab 01/09/17 [Rx] Diphenox-Atrop 2.5-0.025 mg [Lomotil] 1 each PO TID PRN #20 tab 01/09/17 [Rx] Dronabinol [Marinol] 5 mg PO AC-BID #60 cap 01/09/17 [Rx] Sodium Bicarbonate Tab 650 mg PO TID #50 tab 01/09/17 [Rx] diphenhydrAMINE [Benadryl] 25 mg PO TID #6 capsule 01/09/17 [Rx] predniSONE See Taper PO DIRECTED #6 tab 01/09/17 [Rx] Follow up Appointment(s)/Referral(s): Wilfredo Ivey MD [STAFF PHYSICIAN] - 01/17/17 11:45 am Annie Lorenzo MD [STAFF PHYSICIAN] - 01/29/17 2:30 pm Byron Correa MD [Primary Care Provider] - 3 Days (office is closed .patient will have to call and schedule own appt;.) Aubrey Albarran DO [STAFF PHYSICIAN] - 1 Week (office will get records and call the patient with appt;) [facility] Visiting Nurse, [NON-STAFF] - 1 Week Ambulatory/Diagnostic Orders: Basic Metabolic Panel [LAB.AMB] Time Frame: 1 Week, Location: Determined By Patient Patient Instructions/Handouts: Diphenoxylate/Atropine (By mouth), Prednisone ( By mouth), Diphenhydramine (By mouth), Dronabinol (By mouth), Prednisolone (By mouth), Sodium Bicarbonate (By mouth), Acute Kidney Injury (DC), Hyponatremia ( DC), Hypokalemia (DC), Anemia (DC) Activity/Diet/Wound Care/Special Instructions: dc after seen /by psychiatry Discharge Disposition: HOME SELF-CARE
--- NOTE | 2017-01-09 22:13 | PN ---
PROGRESS NOTE Patient is seen for followup for acute kidney injury. This appears to be prerenal. She is currently maintained on IV fluids and her renal function has been slowly improving. There is no evidence of obstructive uropathy, as ultrasound has not shown any hydronephrosis. The patient is actually being discharged today. EXAMINATION: Blood pressure 144/70, heart rate 110 per minute. She is afebrile. HEART: S1, S2. LUNGS: Bilateral breath sounds are heard. ABDOMEN: Soft, nontender. Lower extremities show trace edema, mainly in the ankles. Labs show sodium 138, potassium 4.3, BUN 18, serum creatinine 2.2. ASSESSMENT: 1. Acute kidney injury, most likely prerenal, currently improving with IV hydration. Serum creatinine down to 2.2 from 4.38 on initial admission. Previous creatinine was 0.74 on 08/09/2016. Urine eosinophils were positive and patient is maintained on prednisone, which we will continue for now. There may be a component of acute interstitial nephritis. We will repeat labs as an outpatient. 2. Gastroenteritis, currently improved. 3. Breast cancer, status post bilateral mastectomy. PLAN: Continue with the prednisone and will see patient back for followup as outpatient for acute interstitial nephritis versus prerenal acute kidney injury. MMODL / IJN: [id number] /
[2017-01-13 22:34] LABS: Cryptosporidium parvum Not detected (Not detected); Isospora belli Not detected (Not detected); Microsporidium Not detected (Not detected); Routine Ova and Parasites Not detected
== END 2017-01-09 17:10 | disposition home or self-care (01) | DRG 683 ==
LOC: EC 09:15 → 5ONC 11:19
PROVIDERS: ADMIT Hospitalist; ATTEND Hospitalist
PROC: 30233N1 Transfusion of Nonautologous Red Blood Cells into Peripheral Vein, Percutaneous Approach (ICD-10-PCS; principal; 2017-01-07)
DX: N17.9 Acute kidney failure, unspecified (principal); E87.1 Hypo-osmolality and hyponatremia; E87.2 Acidosis; D64.81 Anemia due to antineoplastic chemotherapy; D63.8 Anemia in other chronic diseases classified elsewhere; E86.9 Volume depletion, unspecified; E61.1 Iron deficiency; E87.6 Hypokalemia; F43.29 Adjustment disorder with other symptoms; I12.9 Hypertensive chronic kidney disease with stage 1 through stage 4 chronic kidney disease, or unspecified chronic kidney disease; K21.9 Gastro-esophageal reflux disease without esophagitis; K52.9 Noninfective gastroenteritis and colitis, unspecified; N18.4 Chronic kidney disease, stage 4 (severe); T45.1X5A Adverse effect of antineoplastic and immunosuppressive drugs, initial encounter; T78.3XXA Angioneurotic edema, initial encounter; Z79.52 Long term (current) use of systemic steroids; Z82.49 Family history of ischemic heart disease and other diseases of the circulatory system; Z85.3 Personal history of malignant neoplasm of breast; Z90.13 Acquired absence of bilateral breasts and nipples; L65.9 Nonscarring hair loss, unspecified
CPT/HCPCS: 36415; 76770; 80048; 80053; 81001; 82272; 82728; 83540; 83550; 83690; 83735; 84132; 85025; 85027; 86850; 86900; 86901; 86920; 87045; 87046; 87086; 87177; 87205; 87207; 87209; 87324; 89055; 96361; 96365; 96375; 99285

== ENCOUNTER → 2017-04-02 | Outpatient (CLI) | payer MEDICARE ==
--- NOTE | 2017-04-02 10:11 | BD ---
EXAMINATION TYPE: MG DEXA axial skeleton. DATE OF EXAM: 04/02/2017 COMPARISON: NONE CLINICAL HISTORY: 71 year-old female history of breast cancer, postmenopausal screening with HRT. Height: 63 IN Weight: 148 LBS FRAX RISK QUESTIONS: Alcohol (3 or more units per day): NO Family History (Parent hip fracture): NO Glucocorticoids (More than 3mos): NO (Ex: prednisone, prednisolone, methylprednisolone, dexamethasone, and hydrocortisone). History of Fracture in Adulthood: NO Secondary Osteoporosis: 1. Type 1 Diabetes: NO 2. Hyperthyroidism: NO 3. Menopause before 45: NO AGE 52 4. Malnutrition: NO 5. Chronic liver disease: NO Rheumatoid Arthritis: NO Current Tobacco Use: NO RISK FACTORS HISTORY OF: Active: MODERATE Postmenopausal woman: AGE 52 MEDICATIONS: Additional Medications: LETROZOLE, CRANBERRY, IRON, [employer], PEPCID Additional History: BREAST CANCER WITH CHEMO EXAM MEASUREMENTS: Bone mineral densitometry was performed using the [employer] System. Bone mineral density as measured about the Lumbar spine is: ----- L1-L4(G/cm2): 1.181 T Score Values are as follows: ----- L2: 0.9 ----- L3: 0.7 ----- L4: -1.3 ----- L1-L4: 0.0 Bone mineral density BASELINE Bone mineral density about the R hip (g/cm2): 0.858 Bone mineral density about the L hip (g/cm2): 0.817 T Score values are as follows: -----R Neck: -1.3 -----L Neck: -1.6 -----R Total: -1.4 -----L Total: -1.5 Bone mineral density BASELINE IMPRESSION: Osteopenia (T Score between -2.5 and -1 as noted by T score values There is slightly increased risk of fracture and the patient may be considered for treatment. Re-Screen 2-5 years. NOTE: T-SCORE=SD OF THE YOUNG ADULT MEAN.
== END | disposition home or self-care (01) ==
LOC: RADBDWWP 09:01
PROVIDERS: ATTEND Internal Medicine Hematology & Oncology
DX: C50.812 Malignant neoplasm of overlapping sites of left female breast (principal); M85.88 Other specified disorders of bone density and structure, other site; N95.1 Menopausal and female climacteric states; Z79.890 Hormone replacement therapy
CPT/HCPCS: 77080